=== PATIENT | female | born 1935 | race Caucasian/White ===

== ENCOUNTER 2019-09-21 17:56 | Inpatient (IN) | payer MEDICARE ==
[~2019-09-21] VITALS: Ht 154.9 cm; Wt 124.7 kg
[2019-09-21 18:25] VITALS: BP 144/68; BMI 52.0
--- NOTE | 2019-09-21 19:22 | NUR ---
PT SITTING UP IN BED. CL IN REACH. IN ROOM. BED IN LOW SIDE RAILS X2. LUNGS CLEAR. BOWEL ACTIVE X4. RESP EVEN AND UNLABORED. DENIES NEEDS OR PAIN AT THIS TIME. A/O X4. HAS STRESS INCONT. GROIN EXCORIATED BABY POWDER APPLIED AT THIS TIME NYSTATIN ORDERED. WILL CONTINUE TO MONITOR.
[2019-09-21 22:10] VITALS: BP 185/78
[2019-09-22] MEDS ORDERED: ACETAMINOPHEN500 M1 PO (02:47)
[2019-09-22] MEDS ORDERED: ASPIRIN325 MG PO (02:48)
[2019-09-22] MEDS ORDERED: AMPHOGEL PO (02:48)
[2019-09-22] MEDS ORDERED: NYSTATIN1 PWD TOPICAL (02:49)
[2019-09-22] MEDS ORDERED: ZOFRAN4 MG PO (02:49)
[2019-09-22] MEDS ORDERED: LIPITOR80 MG PO (02:49)
[2019-09-22] MEDS ORDERED: VITAMIN D10000 UNI1 PO (02:50)
[2019-09-22] MEDS ORDERED: PLAVIX75 MG PO (02:50)
[2019-09-22] MEDS ORDERED: OS-CAL500 MG PO (02:50)
[2019-09-22] MEDS ORDERED: COLACE100 MG PO (02:51)
[2019-09-22] MEDS ORDERED: FUROSEMIDE40 MG PO (02:52)
[2019-09-22] MEDS ORDERED: FLUTICASONE PRO16 GM NASAL (02:52)
--- NOTE | 2019-09-22 02:52 | NUR ---
I have reviewed this patient and I concur with the Shift Assessment completed by the Licensed Practical Nurse today this shift.
[2019-09-22] MEDS ORDERED: GLIMEPIRIDE2 MG PO (02:53)
[2019-09-22] MEDS ORDERED: HYDROCODON-ACE1 EAC7 PO (02:54)
[2019-09-22] MEDS ORDERED: METAMUCIL PACKE1 PKT PO (02:55)
[2019-09-22] MEDS ORDERED: CLARITIN 10 MG10 MG PO (02:55)
[2019-09-22] MEDS ORDERED: XALATAN 0.0052.5 ML EACH EYE (02:55)
[2019-09-22] MEDS ORDERED: OMEPRAZOLE20 M1 PO (02:56)
[2019-09-22] MEDS ORDERED: TRADJENTA5 MG PO (02:57)
[2019-09-22] MEDS ORDERED: POTASSIUM99 M1 PO (02:57)
[2019-09-22 07:47] LABS: ANION GAP 11.2 mmol/L (8-16); CALCIUM 8.5 mg/dL (8.5-10.1); CARBON DIOXIDE 27.8 mmol/L (21.0-32.0); CREATININE - SERUM 2.2 mg/dL (0.6-1.3)
[2019-09-22 07:49] LABS: BASOPHILS 0.1 % (0-2); EOSINOPHILS 5.7 % (0-7); HEMOGLOBIN 9.5 g/dL (12-16); IMMATURE GRANULOCYTES 0.6 % (0-5); LYMPHOCYTES 6.5 % (15-50); MCHC 31.7 g/dL (31.0-37.0); MCV 85.2 fL (80.0-100.0); MEAN PLATELET VOLUME 10.2 fL (7.4-10.4); MONOCYTES 10.8 % (2-11); NEUTROPHILS 76.3 % (40-80); PLATELET COUNT 270 10x3/uL (130-400); RBC 3.52 10x6/uL (4.00-5.40); RDW 15.2 % (11.5-14.5); WBC 9.6 10x3/uL (4.8-10.8)
--- NOTE | 2019-09-22 08:00 | NUR ---
PATIENT IS ALERT/ORIENT. CALL LIGHT WITHIN REACH. VOICES NO NEEDS AT THIS TIME. WILL CONTINUE WITH PLAN OF CARE
[2019-09-22 08:25] VITALS: BP 174/59
[2019-09-22 09:50] VITALS: Ht 154.9 cm; Wt 124.7 kg
--- NOTE | 2019-09-22 11:13 | NUR ---
OCCUPATIONAL THERAPIST WORKING WITH PATIENT. HELPING PATIENT WITH A SHOWER
--- NOTE | 2019-09-22 20:00 | NUR ---
AWAKE AND ALERT. RESPIRATIONS UNLABORED. SITTING IN WHEELCHAIR TALKING WITH VISITORS. REQUESTED TO GO TO BATHROOM. ASSISTED TO BATHROOM AND BACK TO BED. MEDICATED FOR PAIN AND C/O COUGH. SEE MAR. CALL LIGHT IN REACH.
[2019-09-22 21:50] VITALS: BP 147/54
--- NOTE | 2019-09-23 00:17 | NUR ---
RESTING IN BED WITH RESPIRAITONS UNLABORED. ASSISTED TO BATHROOM AND BACK TO BED. MEDICATED FOR C/O COUGH.
--- NOTE | 2019-09-23 03:32 | NUR ---
CONTINUES SLEEPING WITH RESPIRATIONS UNLABORED. NO DISTRESS NOTED.
--- NOTE | 2019-09-23 05:20 | NUR ---
QUIET HOURS. NO ACUTE CHANGES IN CONDITION THIS SHIFT. RESTING IN BED WITH NO DISTRESS NOTED. CALL LIGHT IN REACH.
[2019-09-23 07:00] VITALS: BP 151/73
--- NOTE | 2019-09-23 09:54 | NUR ---
PT AM MEDS ADMINISTERED. PT ASSISSTED INTO BR. PT ASSISSTED IN CHANGING CLOTHES. PT BACK IN BEDSIDE CHAIR AND DENIES FURTHUR NEEDS AT THIS TIME. WCTM.
--- NOTE | 2019-09-23 19:14 | NUR ---
GREETED PATIENT AND INTRODUCED MYSELF HER NURSE. PATIENT IS LAYING IN BED RESTING AT THIS TIME. RESPIRATIONS EVEN. NO S/S OF DISTRESS. DENIES ANY NEEDS AT THIS TIME. CALL LIGHT IN REACH.
[2019-09-23 19:45] VITALS: BP 166/60
--- NOTE | 2019-09-24 00:40 | NUR ---
PT AWAKE AND COUGHING. ADMINISTERED 5 ML OF ROBITUSSIN PRN FOR COUGH. WCTM. CALL LIGHT IN REACH.
--- NOTE | 2019-09-24 02:59 | NUR ---
PT SITTING IN WHEELCHAIR WITH EYES CLOSED. RESPIRAITONS EVEN. NO S/S OF DISTRESS. CALL LIGHT IN REACH. WCTM.
--- NOTE | 2019-09-24 03:22 | NUR ---
PT. BACK TO BED FROM WHEELCHAIR. REPOSITIONED FOR COMFORT. CALL LIGHT IN REACH.
--- NOTE | 2019-09-24 08:08 | NUR ---
PT SITTING UP IN WHEELCHAIR EATING BREAKFAST, AVEL NEEDS. WCTM.
[2019-09-24 10:08] VITALS: BP 153/44
--- NOTE | 2019-09-24 19:20 | NUR ---
GREETED PATIENT AND INTRODUCED MYSELF HER NURSE. PATIENT IS CURRENTLY SITTING IN RECLINER WATCHING TV. RESPIRATIONS EVEN. NO S/S OF DISTRESS. DENIES ANY NEEDS AT THIS TIME. CALL LIGHT IN REACH.
[2019-09-24 19:30] VITALS: BP 128/50
--- NOTE | 2019-09-25 01:00 | NUR ---
PT RESTING QUIETLY WITH EYES CLOSED. RESPIRATIONS EVEN. NO S/S OF DISTRESS. CALL LIGHT IN REACH.
[2019-09-25 07:06] LABS: BASOPHILS 0.3 % (0-2); EOSINOPHILS 8.6 % (0-7); HEMATOCRIT 30.9 % (36.0-48.0); HEMOGLOBIN 9.7 g/dL (12-16); IMMATURE GRANULOCYTES 0.7 % (0-5); LYMPHOCYTES 16.3 % (15-50); MCH 26.7 pg (26.0-34.0); MCHC 31.4 g/dL (31.0-37.0); MCV 85.1 fL (80.0-100.0); MONOCYTES 13.2 % (2-11); NEUTROPHILS 60.9 % (40-80); PLATELET COUNT 262 10x3/uL (130-400); RBC 3.63 10x6/uL (4.00-5.40); RDW 15.5 % (11.5-14.5); WBC 5.9 10x3/uL (4.8-10.8)
[2019-09-25 07:25] LABS: CALCIUM 8.5 mg/dL (8.5-10.1); CARBON DIOXIDE 31.9 mmol/L (21.0-32.0); CREATININE - SERUM 1.7 mg/dL (0.6-1.3); POTASSIUM - SERUM 3.9 mmol/L (3.5-5.1)
--- NOTE | 2019-09-25 07:35 | NUR ---
ALERT AND ORIENTED. NO DISTRESS NOTED. RESP EVEN AND UNLABORED. CL IN REACH.
[2019-09-25 08:14] VITALS: BP 154/60
--- NOTE | 2019-09-25 13:13 | NUR ---
Nutrition Follow-up: Diet: Diabetic PO intake: ~50% average x last 4 meals; reports that per appetite is "not good." She is willing to get Glucerna with meal trays. Last BM: 09/25/19. WT: 275# (09/22/19) Meds noted: metamucil, MOM, lasix, glimepiride Labs noted: BUN 33(H), Cr 1.7(H), GFR 30(L), Glu 122(H) Recommend continue current diet. Encouraged PO intake, especially of protein rich foods. Will add Glucerna with meals. RD following.
--- NOTE | 2019-09-25 13:22 | NUR ---
SITTING IN CHAIR IN ROOM NO DISTRESS. CL IN REACH.
--- NOTE | 2019-09-25 15:51 | NUR ---
NO CHANGE IN ASSESSMENT. SITTING IN CHAIR. NO C/O PAIN AT THIS TIME. CL IN REACH.
--- NOTE | 2019-09-25 19:20 | NUR ---
PT SITTING UP IN WHEELCHAIR. VISITORS IN ROOM. DENIES NEEDS OR PAIN AT THIS TIME. CL IN REACH. RESP EVEN AND UNLABORED. A/O X4. LUNGS CLEAR. BOWEL ACTIVE X4. WILL CONTINUE TO MONITOR.
[2019-09-25 20:52] VITALS: BP 158/55
--- NOTE | 2019-09-26 00:19 | NUR ---
I have reviewed this patient and I concur with the Shift Assessment completed by the Licensed Practical Nurse today this shift.
[2019-09-26 07:52] VITALS: BP 140/67
--- NOTE | 2019-09-26 09:26 | NUR ---
PATIENT IS ALERT/ORIENT. CALL LIGHT WITHIN REACH. VOICES NO NEEDS AT THIS TIME. WILL CONTINUE WITH PLAN OF CARE.
--- NOTE | 2019-09-26 10:10 | NUR ---
OCCUPATIONAL THERAPIST IN ROOM. HELPING PATIENT WITH A SHOWER
--- NOTE | 2019-09-26 12:12 | NUR ---
PATIENT ADMITTED TO REHAB FROM AN OUTSIDE FACILITY. SHE HAS A ROLLING WALKER AT HOME. DISCHARGE PLANS ARE FOR HER TO RETURN HOME . WILL CONTINUE TO FOLLOW WITH PATIENT.
--- NOTE | 2019-09-26 14:48 | NUR ---
PATIENT IS A MODERATE ASST OF ONE FROM WHEELCAIR ONTO TOILET. NEEDS HELP GETTING FEET UP IN BED.
--- NOTE | 2019-09-26 19:22 | NUR ---
PT SITTING UP IN RECLINER. VISITORS IN ROOM. DENIES NEEDS OR PAIN AT THIS TIME. BED IN LOW SIDE RAILS X2. A/O X4. CL IN REACH. RESP EVEN AND UNLABORED. LUNGS CLEAR. BOWEL ACTIVE X4. WILL CONTINUE TO MONITOR.
[2019-09-26 21:04] VITALS: BP 160/51
--- NOTE | 2019-09-27 04:02 | NUR ---
I have reviewed this patient and I concur with the Shift Assessment completed by the Licensed Practical Nurse today this shift.
[2019-09-27 06:24] LABS: BASOPHILS 0.2 % (0-2); EOSINOPHILS 9.3 % (0-7); HEMATOCRIT 30.9 % (36.0-48.0); HEMOGLOBIN 9.4 g/dL (12-16); IMMATURE GRANULOCYTES 0.5 % (0-5); MCH 26.6 pg (26.0-34.0); MCHC 30.4 g/dL (31.0-37.0); MCV 87.3 fL (80.0-100.0); MEAN PLATELET VOLUME 10.4 fL (7.4-10.4); MONOCYTES 13.8 % (2-11); NEUTROPHILS 61.2 % (40-80); PLATELET COUNT 260 10x3/uL (130-400); RBC 3.54 10x6/uL (4.00-5.40); RDW 15.8 % (11.5-14.5); WBC 5.7 10x3/uL (4.8-10.8)
[2019-09-27 06:47] LABS: ANION GAP 10.2 mmol/L (8-16); CALCIUM 8.9 mg/dL (8.5-10.1); CREATININE - SERUM 1.8 mg/dL (0.6-1.3); POTASSIUM - SERUM 4.2 mmol/L (3.5-5.1)
[2019-09-27 07:57] VITALS: BP 175/65
--- NOTE | 2019-09-27 09:27 | NUR ---
PATIENT IS ALERT. SOME FORGETFULLNESS NOTED. PATIENT SITTING UP IN WHEELCHAIR. CHAIR ALARM ON. CALL LIGHT WITHIN REACH. VOICES NO NEEDS AT THIS TIME. WILL CONTINUE WITH PLAN OF CARE
--- NOTE | 2019-09-27 10:10 | NUR ---
PATIENT IN REHAB ROOM. WORKING WITH OCCUPATIONAL THERAPIST. DENIES ANY PAIN/DISC AT THIS TIME.
--- NOTE | 2019-09-27 13:42 | NUR ---
Nutrition Follow-up: Discussed in CM meeting. Diet: Diabetic + Glucerna TID PO intake: ~58% average x last 9 meals Last BM: 09/26/19. WT: 275# (09/22/19) Meds noted: metamucil, MOM, lasix, glimepiride, linagliptin Labs noted: Glu 158(H) Recommend continue current diet and oral nutrition supplement. RD following.
--- NOTE | 2019-09-27 14:55 | NUR ---
PATIENT HELPED INTO BATHROOM. MODERATE ASST OF ONE TO GET OUT OF BED. STAND BY ASST WITH WHEELED WALKER
--- NOTE | 2019-09-27 19:25 | NUR ---
PT SITTING UP IN RECLINER. CL IN REACH. DENIES NEEDS OR PAIN AT THIS TIME. RESP EVEN AND UNLABOERD. A/O X4. LUNGS CLEAR. BOWEL ACTIVE X4. WILL CONTINUE TO MONITOR.
[2019-09-27 22:06] VITALS: BP 181/69
--- NOTE | 2019-09-28 00:59 | NUR ---
I have reviewed this patient and I concur with the Shift Assessment completed by the Licensed Practical Nurse today this shift.
--- NOTE | 2019-09-28 07:30 | NUR ---
RECEIVED A/A/OX4 SITTING UP IN CHAIR AT BEDSIDE. DENIES ANY PAIN AND VOICES NO REQUESTS. ASSESSMENT COMPLETED AND WILL CONTINUE POC. CASLL LIGHT IN REACH AND PT CHEL WHEN SHE NEEDS ASST GETTING UP TO BATHROOM.
[2019-09-28 08:59] VITALS: BP 189/68
--- NOTE | 2019-09-28 12:00 | NUR ---
I have reviewed this patient and I concur with the Shift Assessment completed by the Licensed Practical Nurse today this shift.
--- NOTE | 2019-09-28 16:27 | NUR ---
CARE TEAM MEETING: PATIENT AND DAUGHTER ATTENDED MEETING. THEIR QUESTIONS AND CONCERNS WERE ADDRESSED. TENATIVE DISCHARGE DATE IS 09/29/19. WILL CONTINUE TO FOLLOW WITH PATIENT.
--- NOTE | 2019-09-28 19:19 | NUR ---
INTRODUCED SELF TO PT, FAMILY AT BEDSIDE, PT STATES NO NEW NEEDS AT THIS TIME, CALL LIGHT WITHIN REACH. WILL CONTINUE TO MONITOR.
[2019-09-28 20:22] VITALS: BP 186/73
--- NOTE | 2019-09-28 20:52 | NUR ---
NIGHT MEDICATION GIVEN, PT STATES PAIN AT A 5 IN LOWER BACK, PAIN MEDICATION GIVEN, PT TOLERATED WELL, ASSIST PT BACK TO BED FROM CHAIR WITH MINIMAL ASSISTANCE, BED IN LOW POSITION, RAILS UP X'S 2, CALL LIGHT WITHIN REACH, WILL CONTINUE TO MONITOR.
--- NOTE | 2019-09-29 00:07 | NUR ---
PT RESTING QUIETLY IN BED, RESPIRATIONS EVEN, ROOM CLEARED OF CLUTTER, BED IN LOW POSITION, SIDE RAILS UP X'S 2, CALL LIGHT WITHIN REACH, WILL CONTINUE TO MONITOR.
--- NOTE | 2019-09-29 02:34 | NUR ---
PT RESTING QUIETLY, RESPIRATIONS EVEN, CALL LIGHT WITHIN REACH, WILL CONTINUE TO MONITOR.
--- NOTE | 2019-09-29 02:35 | NUR ---
I have reviewed this patient and I concur with the Shift Assessment completed by the Licensed Practical Nurse today this shift.
--- NOTE | 2019-09-29 03:41 | NUR ---
PT STATES PAIN AT A 7 IN LEFT SHOULDER, REPOSITION PT AND PAIN MED GIVEN, CALL LIGHT WITHIN REACH, WILL CONTINUE TO MONITOR.
--- NOTE | 2019-09-29 05:11 | NUR ---
ASSISTED PT TO BATHROOM AND BACK TO BED VIA WHEELCHAIR WITH MIN TO MOD ASSISTANCE, MORNING MEDICATION GIVEN, PT TOLERATED WELL, CALL LIGHT WITHIN REACH. WILL CONTINUE TO MONITOR.
[2019-09-29 06:44] LABS: BASOPHILS 0.1 % (0-2); EOSINOPHILS 2.6 % (0-7); HEMATOCRIT 33.4 % (36.0-48.0); HEMOGLOBIN 10.3 g/dL (12-16); IMMATURE GRANULOCYTES 0.4 % (0-5); LYMPHOCYTES 6.1 % (15-50); MCHC 30.8 g/dL (31.0-37.0); MCV 87.4 fL (80.0-100.0); MEAN PLATELET VOLUME 10.4 fL (7.4-10.4); MONOCYTES 8.9 % (2-11); NEUTROPHILS 81.9 % (40-80); PLATELET COUNT 260 10x3/uL (130-400); RBC 3.82 10x6/uL (4.00-5.40)
[2019-09-29 06:50] LABS: ANION GAP 12.8 mmol/L (8-16); CALCIUM 9.4 mg/dL (8.5-10.1); CARBON DIOXIDE 27.4 mmol/L (21.0-32.0); CREATININE - SERUM 1.5 mg/dL (0.6-1.3); POTASSIUM - SERUM 4.2 mmol/L (3.5-5.1)
--- NOTE | 2019-09-29 07:30 | NUR ---
RECEIVED A/A/OX4. SITTING UP IN BEDSIDE CHAIR. STATES SHE IS STILL HAVING SOME PAIN IN HER LEFT SHOULDER BUT NOT BAD IT WAS EARLIER WHEN SHE TOOK PAIN MED. INFORMED HER NOT YET TIME FOR PAIN MED AGAIN AND STATES SHE UNDERSTANDS. NO OTHER PROBLEMS OR REQUESTS. ASSESSMENT COMPLETED AND WILL CONTINUE POC. PT STATES SHE IS HOPING TO STILL BE DISCHARGED TODAY.
[2019-09-29] MEDS ORDERED: HYDROCODON-ACE1 EAC7 PO (08:31)
--- NOTE | 2019-09-29 11:01 | NUR ---
PATIENT DISCHARGING HOME TODAY WITH FAMILY. [facility] WILL PROVIDE THERAPY AT HOME.NO NEW DME NEEDED AT THIS TIME. DR. LOYA 10/11/19 @ 2:15, DR. LEPE 11/22/2019 @ 1:10. PATIENT CHOICE FORM FOR HOME HEALTH SIGNED, NO COMPARE DATA REVIEWED PATIENT IS A CLIENT OF [facility]. [facility] FORM SIGNED AND EXPLAINED, FILED INCHART AND ONE GIVEN TO PATIENT. DISCHARGE INSTRUCTIONS FAXED TO PCP, HOME HEALTH AND REVIEWED WITH PATIENT.
[2019-09-29 11:25] VITALS: BP 186/52
--- NOTE | 2019-09-29 12:20 | NUR ---
DISCHARGE INSTRUCTIONS REVIEWED WITH PT AND VERBALIZES UNDERSTANDING WITH NO QUESTION. LEFT FLOOR VIA W/C WITH ALL PERSONAL BELONGINGS AND LEFT FACILITY VIA PRIVATE VEHICLE WITH HER . PRESCRIPTIONS CALLED TO [facility] IN [place], SPOKE WITH JOSEFINA.
--- NOTE | 2019-10-02 16:47 | RHP ---
PATIENT: TISH NICK MEDICAL RECORD: [id number] ACCOUNT: [id number] LOCATION:[facility] : 37 ADMISSION DATE: 09/21/19 REHABILITATION HISTORY AND PHYSICAL EXAMINATION POST ADMISSION PHYSICIAN EXAMINATION POST ADMISSION PHYSICAL EXAMINATION AND HISTORY AND PHYSICAL DATE OF ADMISSION: 09/21/2019 ADMITTING DIAGNOSIS: Cerebrovascular accident. HISTORY OF PRESENT ILLNESS: The patient is an 83-year-old female patient, who lives at home with her in [place]. She has not been working for several years, but did use to work at [employer]. The patient apparently utilizes a rolling walker for household mobility, scooter for community activity, but does not drive. On September 12, the patient went to her PCP with bilateral lower extremity swelling. When she was getting out of her car, she heard a pop in her right hip and has pain upon weightbearing. She had a negative pelvic x-ray in the office. She was prescribed tramadol and sent home. She continued to have right hip. PCP recommend a CT of her hip. She was sent over to [facility], where she had this done. Apparently, the scan was negative as well. She was admitted for pain control and further workup. She has been treated for E. coli UTI during her stay. She has had a history of low back pain, chronic kidney disease, morbid obesity, UTI, hyperlipidemia, and TIAs. The patient preparing to discharge when on she began having altered mental status with left-sided facial drooping and slurred speech. 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 She was assessed through [facility] prior to transfer to [facility] on September 18. She did not receive IV TPA. She was admitted to the neuro floor with diagnosis of CVA with occlusion of middle cerebral artery, bilateral internal carotid stenosis, dyspepsia, stage III chronic kidney disease, morbid obesity, polyneuropathy, encephalopathy due to metabolic etiology. The patient was seen by neurology and also by interventional radiology. No surgical intervention was done. She was started on Plavix, statin, and aspirin. The patient is noted to have aggressive medical management, MD, required acute rehab consultation. She has been participating in PT, OT, and speech therapy. She is a diabetic and she is on thickened liquids, which she has tolerated well. 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 She does have some incontinence and does at times pass stool with urine. She has ambulated 3 feet at bedside with rolling walker with moderate assist. She has been requiring supervision for total assist with PT, OT, and ADLs. Barriers to her return home at this time include difficulty with mobility, need to have a decreased burden of care on her , need for increased independence and safety, need for medical management of her comorbidities. The patient will need MD, RN, and oversight during her stay for intensive PT, OT, and speech therapy. She would like to return home with her and be as independent as possible. Comorbidities include [id number] renal failure, encephalopathy, carotid stenosis, chronic back pain, chronic kidney disease, confusion, CVA, degenerative disc disease, gastroesophageal reflux disease, hyperlipidemia, hyponatremia, left-sided weakness, metabolic encephalopathy, pain, peripheral neuropathy, and UTI. PAST MEDICAL HISTORY: Significant for arthritis, diabetes, diverticulitis, morbid obesity, hyperlipidemia, hypertension, stroke, TIA. HISTORY AND PHYSICAL [id number] TISH NICK PAST SURGICAL HISTORY: Includes cholecystectomy, hysterectomy, and joint replacement. ALLERGIES: CIPRO AND LEVAQUIN. CURRENT MEDICATIONS: Include Protonix 40 mg daily, Metamucil daily, Estefanía 60 mg daily, furosemide 40 mg daily, Plavix 75 mg daily, vitamin D 400 units daily, Caltrate 500 mg daily, atorvastatin 80 mg daily, aspirin 325 daily, Amaryl 2 mg daily, Tradjenta 5 mg daily. She is on potassium 198 mg b.i.d., nystatin powder topically b.i.d., Xalatan eye drops daily, Colace 100 mg daily, Zofran 4 mg daily, Gaviscon p.r.n., Flasher 5/325 one tab every 6 hours p.r.n., Flonase nasal spray as needed, and also Tylenol 500 mg every 6 hours p.r.n. HABITS: No current alcohol or tobacco use. FAMILY HISTORY: Noncontributory. SOCIAL HISTORY: The patient hopes to return back home and get back to her prior level of functioning. REVIEW OF SYSTEMS: GENERAL: Does complain of some weakness mainly in her left side. HEENT: Denies cold, cough, or congestion. CARDIOVASCULAR: Denies any chest pain. PHYSICAL EXAMINATION: VITAL SIGNS: Stable, afebrile. GENERAL: A morbidly obese female, in no distress upon exam. HEENT: Normocephalic and atraumatic. Mucosa moist. NECK: Supple. No lymphadenopathy. LUNGS: Clear in the upper ritter with decreased breath sounds in the bases secondary to body habitus. CARDIOVASCULAR: Regular rate and rhythm. She does have a holosystolic murmur. ABDOMEN: Soft, benign, and nondistended. Positive bowel sounds times 4. EXTREMITIES: No clubbing, cyanosis or edema. NEUROLOGIC: She does have 2/5 muscular strength in her proximal muscles of her leg. She does have some noted weakness on the left side as compared to the right. LABORATORY DATA: White count is 9.6, H&H of 9.5 and 30.0, platelet count is 270. Sodium 133, potassium 4.0, BUN and creatinine of 44 and 2.2, and blood sugar is noted to be 139. ASSESSMENT: This is an 83-year-old female patient admitted to the rehab with a working diagnosis of a right-sided cerebrovascular accident involving left side of her body. The patient has potential to make improvement. We will institute the following multidisciplinary therapies including, but not limited to, physical, occupational, respiratory, speech, nutritional services, prosthetics, and orthotics. Given her complex medical condition and risks for more complications, rehabilitation services cannot be provided at a lower level of care such as a skilled nurse facility. PLAN: 1. Admit to [facility] for an inpatient therapy to include the HISTORY AND PHYSICAL [id number] TISH NICK following disciplines; A. Physical therapy to improve gait, all transfer skills, and bed mobility to modified independent level. B. Occupational therapy to modified independent level. C. Case management to assist with discharge planning and placement options. D. Nutrition to assist with nutritional needs. E. Rehabilitation nursing to assist in monitoring the patient's underlying medical conditions and to assist with any type of bowel or bladder management. 2. The patient's current medications and medical care will be continued. 3. The patient will be placed on standard fall precautions. 4. The patient's estimated length of stay is approximately 7-10 days. 5. We will discuss this patient during care team staff meeting this week. We will continue on medications that are appropriate. We will continue on her statin, her aspirin, and her Plavix for stroke prevention, and I will see again in the a.m. TRANSINT:[id number] Voice Confirmation ID: [id number] DOCUMENT ID: [id number] RITCHIE notes whether there has been none or any medical/functional change since admission: - No change since preadmission screen. RITCHIE attests patient continues to be appropriate for IRF: - Continues to be appropriate. NABIL CALDWELL MD at 1647 CC: [id number] DICTATION DATE: 09/22/19 0854 PICTURE ENGRAVER: 09/22/19 1049 DIS IN 09/29/19 [id number] [place] [address]
== END 2019-09-29 12:20 | disposition home health service (06) | DRG 56 ==
LOC: D.REHAB 17:56
PROVIDERS: ADMIT Emergency Medicine; ATTEND Emergency Medicine
DX: I69.354 Hemiplegia and hemiparesis following cerebral infarction affecting left non-dominant side (principal); G93.41 Metabolic encephalopathy; N17.9 Acute kidney failure, unspecified; N39.0 Urinary tract infection, site not specified; E87.1 Hypo-osmolality and hyponatremia; I12.9 Hypertensive chronic kidney disease with stage 1 through stage 4 chronic kidney disease, or unspecified chronic kidney disease; E11.22 Type 2 diabetes mellitus with diabetic chronic kidney disease; N18.9 Chronic kidney disease, unspecified; I65.29 Occlusion and stenosis of unspecified carotid artery; K21.9 Gastro-esophageal reflux disease without esophagitis; E66.01 Morbid (severe) obesity due to excess calories; R41.0 Disorientation, unspecified; R53.81 Other malaise; E11.40 Type 2 diabetes mellitus with diabetic neuropathy, unspecified; E87.8 Other disorders of electrolyte and fluid balance, not elsewhere classified; E78.5 Hyperlipidemia, unspecified; M19.90 Unspecified osteoarthritis, unspecified site; R32 Unspecified urinary incontinence; R53.1 Weakness

== ENCOUNTER 2020-11-23 20:43 | Inpatient (IN) | payer MEDICARE, OTHER ==
[~2020-11-23] VITALS: Ht 154.9 cm; Wt 99.8 kg
[~2020-11-23 20:43] MED LIST: ACETAMINOPHEN500 M1 PO; AMPHOGEL PO; ASPIRIN325 MG PO; CLARITIN 10 MG10 MG PO; COLACE100 MG PO; FLUTICASONE PRO16 GM NASAL; FUROSEMIDE40 MG PO; GLIMEPIRIDE2 MG PO; HYDROCODON-ACE1 EAC7 PO; LIPITOR80 MG PO; METAMUCIL PACKE1 PKT PO; NYSTATIN1 PWD TOPICAL; OMEPRAZOLE20 M1 PO; OS-CAL500 MG PO; PLAVIX75 MG PO; POTASSIUM99 M1 PO; TRADJENTA5 MG PO; VITAMIN D10000 UNI1 PO; XALATAN 0.0052.5 ML EACH EYE; ZOFRAN4 MG PO
[2020-11-24] VITALS (7 sets, daily range): BP systolic 103–162; BP diastolic 44–76; BMI 41.6
--- NOTE | 2020-11-24 01:00 | NUR ---
PT ADMITTED TO UNIT FROM ER. ALERT/ORIENTED. ACCOMPANIED BY HER . MAX ASSIST/TOTAL FOR TRANSFER FROM STRETCHER TO BED. ADMISSION HISTORY AND ASSESSMENT COMPLETED. HOME MEDS REVIEWED/UPDATED. IV ABT FROM ER COMPLETED. HAS PIV NOW SALINE LOCKED TO RIGHT WRIST. BILATERAL LOWER LEGS ARE EDEMATOUS AND WEEPING WITH LARGE SCABBED AREAS. SPOUSE AND PATIENT STATE THIS BEGAN "A FEW DAYS AGO". TELEMETRY INITIATED, PT SHOWS SR WITH PAC'S AND ST ELEVATION AND 1ST DEGREE HEART BLOCK. PT DENIES PAIN UNLESS SOMEONE TOUCHES HER LOWER LEGS.
[2020-11-24 02:02] LABS: BASOPHILS 0.2 % (0-2); EOSINOPHILS 1.8 % (0-7); HEMOGLOBIN 10.1 g/dL (12-16); IMMATURE GRANULOCYTES 0.3 % (0-5); LYMPHOCYTE ABS# 0.61 10x3/uL (1.18-3.74); LYMPHOCYTES 6.5 % (15-50); MCH 24.6 pg (26.0-34.0); MCHC 30.6 g/dL (31.0-37.0); MCV 80.5 fL (80.0-100.0); MEAN PLATELET VOLUME 12.8 fL (7.4-10.4); MONOCYTES 11.4 % (2-11); NEUTROPHIL ABS# 7.43 10x3/uL (1.56-6.13); NEUTROPHILS 79.8 % (40-80); PLATELET COUNT 154 10x3/uL (130-400); WBC 9.3 10x3/uL (4.8-10.8)
[2020-11-24 02:11] LABS: APTT 34.1 SECONDS (22.8-39.4); INR 1.41 (0.85-1.17)
[2020-11-24 02:12] LABS: D-DIMER-QUANTITATIVE 0.86 ug/mLFEU (0.20-0.54)
[2020-11-24 02:25] LABS: ALBUMIN 3.2 g/dL (3.4-5.0); ALKALINE PHOSPHATASE 134 U/L (30-120); ALT (SGPT) 11 U/L (10-68); CALC OSMOLALITY 311 mosm/kg (275-300); CALCIUM 9.3 mg/dL (8.5-10.1); CARBON DIOXIDE 26.2 mmol/L (21.0-32.0); CHLORIDE - SERUM 109 mmol/L (98-107); CKMB 1.5 U/L (0.0-3.6); CREATINE KINASE 30 UL (21-215); GLUCOSE 177 mg/dL (74-106); MAGNESIUM - SERUM 2.8 mg/dL (1.8-2.4); POTASSIUM - SERUM 4.6 mmol/L (3.5-5.1); PRO BNP 4391 pg/mL (0-450); PROTEIN - SERUM 6.9 g/dL (6.4-8.2); SODIUM 143 mmol/L (136-145); UREA NITROGEN 77 mg/dL (7-18); eGFR NON AFRICAN AMERICAN 25 mL/min (90-120)
[2020-11-24 02:27] LABS: TROPONIN-I < 0.017 ng/mL (0.000-0.060)
[2020-11-24] MEDS ORDERED: TORSEMIDE20 MG PO (04:09)
[2020-11-24] MEDS ORDERED: TRADJENTA5 MG PO (04:10)
--- NOTE | 2020-11-24 06:28 | NUR ---
PT HAS RESTED WELL. NO DISTRESS. CLEAN/DRY. WEARING DEPENDS. CALL LIGHT IN REACH. SR UP X 2.
--- NOTE | 2020-11-24 07:20 | NUR ---
RECIEVE REPORT. RESTING IN BED WITH EYES CLOSED. NO SIGNS OF DISTRESS. CONTINUE PLAN OF CARE AND SAFETY PRECAUTIONS.
[2020-11-24 10:52] LABS: COMPLEMENT C4 21.4 mg/dL (17.4-52.2)
[2020-11-24 11:20] LABS: CHOL - HDL RATIO 2.5 ratio (2.3-4.1); LDL-HDL RATIO 1.1 ratio (1.5-3.5); MAGNESIUM - SERUM 2.9 mg/dL (1.8-2.4); THYROID STIMULATING HORMONE 1.8 uIU/mL (0.36-3.74)
--- NOTE | 2020-11-24 15:50 | NUR ---
ALERT AND ORIENTED X4. SITTING UP IN BED. SPOUSE AT BEDSIDE. DENIES ANY NEEDS. NO SIGNS OF DISTRESS. NO CHANGE. BED BATH AND LINEN CHANGE COMPLETE. CONTINUE PLAN OF CARE AND SAFETY PRECAUTIONS.
[2020-11-25] VITALS: BP 136/81
[2020-11-25 04:00] VITALS: BP 109/52
[2020-11-25 05:38] LABS: BASOPHILS 0.1 % (0-2); EOSINOPHILS 1.2 % (0-7); HEMATOCRIT 33.1 % (36.0-48.0); HEMOGLOBIN 9.9 g/dL (12-16); IMMATURE GRANULOCYTES 0.2 % (0-5); LYMPHOCYTE ABS# 0.66 10x3/uL (1.18-3.74); LYMPHOCYTES 5.3 % (15-50); MCH 24.3 pg (26.0-34.0); MCHC 29.9 g/dL (31.0-37.0); MCV 81.3 fL (80.0-100.0); MONOCYTES 11.6 % (2-11); NEUTROPHIL ABS# 10.17 10x3/uL (1.56-6.13); NEUTROPHILS 81.6 % (40-80); PLATELET COUNT 139 10x3/uL (130-400); RBC 4.07 10x6/uL (4.00-5.40); RDW 18.2 % (11.5-14.5); WBC 12.5 10x3/uL (4.8-10.8)
[2020-11-25 05:51] LABS: ALBUMIN 3.2 g/dL (3.4-5.0); ANION GAP 15.6 mmol/L (8-16); BILIRUBIN - TOTAL 0.45 mg/dL (0.2-1.3); CALCIUM 9.5 mg/dL (8.5-10.1); CARBON DIOXIDE 23.3 mmol/L (21.0-32.0); CREATININE - SERUM 1.7 mg/dL (0.6-1.3); MAGNESIUM - SERUM 2.8 mg/dL (1.8-2.4); POTASSIUM - SERUM 4.9 mmol/L (3.5-5.1); PROTEIN - SERUM 6.4 g/dL (6.4-8.2); VANCOMYCIN - RANDOM 7.2 ug/mL (10.0-20.0)
--- NOTE | 2020-11-25 07:20 | NUR ---
RECIEVE REPORT. RESTING IN BED WITH EYES CLOSED. NO SIGNS OF DISTRESS. CONTINUE PLAN OF CARE AND SAFETY PRECAUTIONS.
[2020-11-25 08:00] VITALS: BP 158/48
[2020-11-25 11:00] VITALS: BP 140/58
[2020-11-25 13:09] VITALS: Ht 154.9 cm; Wt 99.8 kg
--- NOTE | 2020-11-25 16:27 | NUR ---
Rehab prescreen order received. Awaiting OT assessment. Thank you for this referral. Yvette Garcia LPN, Clinical Liaison
[2020-11-26 01:20] VITALS: BP 121/44
[2020-11-26 05:20] VITALS: BP 120/43
[2020-11-26 05:56] LABS: BILIRUBIN NEGATIVE (NEGATIVE); KETONE NEGATIVE (NEGATIVE); NITRITE NEGATIVE (NEGATIVE); UROBILINOGEN NORMAL mg/dL (< 2)
[2020-11-26 05:57] LABS: BACTERIA FEW HPF (NONE SEEN); SQUAMOUS EPITHELIAL 0-5 HPF (0-4); WHITE CELLS - URINE 0-5 HPF (0-4)
[2020-11-26 06:18] LABS: BASOPHILS 0.1 % (0-2); EOSINOPHILS 2.3 % (0-7); HEMATOCRIT 31.6 % (36.0-48.0); HEMOGLOBIN 9.6 g/dL (12-16); IMMATURE GRANULOCYTES 0.6 % (0-5); LYMPHOCYTE ABS# 0.69 10x3/uL (1.18-3.74); LYMPHOCYTES 6.6 % (15-50); MCH 24.6 pg (26.0-34.0); MCHC 30.4 g/dL (31.0-37.0); MONOCYTES 13.8 % (2-11); NEUTROPHIL ABS# 7.99 10x3/uL (1.56-6.13); NEUTROPHILS 76.6 % (40-80); PLATELET COUNT 134 10x3/uL (130-400); RDW 18.2 % (11.5-14.5); WBC 10.4 10x3/uL (4.8-10.8)
[2020-11-26 06:27] LABS: ALBUMIN 2.9 g/dL (3.4-5.0); ANION GAP 13.9 mmol/L (8-16); BILIRUBIN - TOTAL 0.52 mg/dL (0.2-1.3); CALCIUM 9.4 mg/dL (8.5-10.1); CARBON DIOXIDE 24.3 mmol/L (21.0-32.0); CREATININE - SERUM 1.8 mg/dL (0.6-1.3); MAGNESIUM - SERUM 2.5 mg/dL (1.8-2.4); POTASSIUM - SERUM 4.2 mmol/L (3.5-5.1); PROTEIN - SERUM 6.7 g/dL (6.4-8.2); VANCOMYCIN - RANDOM 14.7 ug/mL (10.0-20.0)
[2020-11-26 08:00] VITALS: BP 132/52
[2020-11-26 11:00] VITALS: BP 126/71
[2020-11-26] MEDS ORDERED: IPRAT-ALBUT 0.5-3 ML UPD (14:23)
[2020-11-26] MEDS ORDERED: VANCOMYCIN 1 GM/1 G1 IV (14:23)
[2020-11-26] MEDS ORDERED: IPRAT-ALBUT 0.5-3 ML INH (14:23)
[2020-11-26] MEDS ORDERED: Merrem 1 GM/NS 100 M IV (14:23)
[2020-11-26] MEDS ORDERED: MUCINEX600 MG PO (14:24)
[2020-11-26] MEDS ORDERED: LASIX INJ40 MG/4 ML IV ×2 (14:24)
[2020-11-26] MEDS ORDERED: HUMALOG 30100 UNITS/ SC (14:25)
[2020-11-26] MEDS ORDERED: MUPIROCIN22 GM TOPICAL ×2 (14:25→20:15)
[2020-11-26] MEDS ORDERED: FLORAJEN DIGES1 EACH PO (14:25)
--- NOTE | 2020-11-26 14:51 | NUR ---
OT NOTE: PT REQUIRED MAX-TOTAL A FOR SUPINE TO SIT. PT REQUIRED MAX A TO EOB. PT COMPLETED STATIC SITTING WITH MIN A. PT REQUIRED TOTAL A FOR LB HYGIENE TASKS. PT COMPLETED BED MOBILITY TASKS WITH MAX-TOTAL A. [id number] THANK YOU,MATEO FERREIRA
--- NOTE | 2020-11-26 16:05 | NUR ---
PAGED DR RUGGIERO FOR CLEARNCE TO BE D/C TO IP REHAB.
[2020-11-26 16:31] VITALS: BP 96/60
--- NOTE | 2020-11-26 17:52 | NUR ---
REPORT CALLED TO ELLIE AT THIS TIME IN INPATIENT REHAB
--- NOTE | 2020-11-26 18:05 | NUR ---
PT WHEELED TO INPATIENT REHAB AT THIS TIME, IV STILL IN PLACE D/T IV ANTIBIOTICS. ALL BELONGINGS WITH PT TIME OF TRANSFER.
--- NOTE | 2020-11-26 18:19 | NUR ---
CLARIFIED LASIX IVP ORDER WITH DUY LANDA AT THIS TIME. NOTIFIED ELLIE MACIAS IN REHAB.
== END 2020-11-26 18:20 | DRG 637 ==
LOC: D.ER 20:43 → D.M2 21:27
PROVIDERS: Internal Medicine Nephrology; ADMIT Emergency Medicine; ATTEND Emergency Medicine
DX: E11.628 Type 2 diabetes mellitus with other skin complications (principal); J18.9 Pneumonia, unspecified organism; I50.31 Acute diastolic (congestive) heart failure; L03.115 Cellulitis of right lower limb; Z68.41 Body mass index [BMI] 40.0-44.9, adult; N17.9 Acute kidney failure, unspecified; E66.01 Morbid (severe) obesity due to excess calories; J20.9 Acute bronchitis, unspecified; M54.9 Dorsalgia, unspecified; G89.29 Other chronic pain; E11.40 Type 2 diabetes mellitus with diabetic neuropathy, unspecified; Z86.73 Personal history of transient ischemic attack (TIA), and cerebral infarction without residual deficits

== ENCOUNTER 2020-11-26 18:14 | Inpatient (IN) | payer MEDICARE, OTHER ==
[~2020-11-26] VITALS: Ht 154.9 cm; Wt 99.5 kg
[~2020-11-26 18:14] MED LIST changes: +FLORAJEN DIGES1 EACH PO; +HUMALOG 30100 UNITS/ SC; +IPRAT-ALBUT 0.5-3 ML INH; +IPRAT-ALBUT 0.5-3 ML UPD; +LASIX INJ40 MG/4 ML IV; +MUCINEX600 MG PO; +MUPIROCIN22 GM TOPICAL; +Merrem 1 GM/NS 100 M IV; +TORSEMIDE20 MG PO; +VANCOMYCIN 1 GM/1 G1 IV
[2020-11-26 19:50] VITALS: BP 126/55; Ht 154.9 cm; Wt 99.5 kg
[2020-11-26 20:02] VITALS: BP 126/55
--- NOTE | 2020-11-26 20:14 | NUR ---
ADMIT TO PHYSICAL REHAB FOR SERVICES OF DR CALDWELL. AWAKE AND ALERT. O2/2L ON PER NASAL CANNULA. RIGHT FOREARM SALINE LOCK INTACT. NO ACUTE DISTRESS NOTED.
[2020-11-26] MEDS ORDERED: MUPIROCIN22 GM TOPICAL (20:15)
--- NOTE | 2020-11-27 02:14 | NUR ---
RESTING IN BED WITH NO DISTRESS NOTED. RESPIRATIONS SLIGHTLY LABORED WITH CONTINUED WHEEZING. O2/2L ON PER NASAL CANNULA. CALL LIGHT IN REACH.
--- NOTE | 2020-11-27 05:43 | NUR ---
RESTING IN BED. O2/2L PER NASAL CANUULA. HAS COUGHED FREQUENTLY TONIGHT AND CONSTANTLY CLEARED HER THROAT. NO ACUTE DISTRESS NOTED. CALL LIGHT IN REACH.
[2020-11-27 06:54] LABS: ANION GAP 14.6 mmol/L (8-16); CALCIUM 9.4 mg/dL (8.5-10.1); CARBON DIOXIDE 21.7 mmol/L (21.0-32.0); CREATININE - SERUM 1.6 mg/dL (0.6-1.3); POTASSIUM - SERUM 4.3 mmol/L (3.5-5.1)
[2020-11-27 08:05] VITALS: BP 159/50
[2020-11-27 08:13] LABS: BASOPHILS 0.1 % (0-2); EOSINOPHILS 3.9 % (0-7); HEMATOCRIT 33.3 % (36.0-48.0); HEMOGLOBIN 10.2 g/dL (12-16); IMMATURE GRANULOCYTES 0.4 % (0-5); LYMPHOCYTE ABS# 1.34 10x3/uL (1.18-3.74); MCH 24.5 pg (26.0-34.0); MCHC 30.6 g/dL (31.0-37.0); MCV 79.9 fL (80.0-100.0); MEAN PLATELET VOLUME 12.4 fL (7.4-10.4); MONOCYTES 7.1 % (2-11); NEUTROPHIL ABS# 9.41 10x3/uL (1.56-6.13); NEUTROPHILS 77.5 % (40-80); PLATELET COUNT 140 10x3/uL (130-400); RBC 4.17 10x6/uL (4.00-5.40); RDW 18.1 % (11.5-14.5); WBC 12.1 10x3/uL (4.8-10.8)
--- NOTE | 2020-11-27 09:59 | NUR ---
PATIENT STARTED VOMITTING INTO EMISIS BAG. VOMIT NOTED TO BE CLEAR TO LIGHT YELLOW IN COLOR. PATIENTS ARRIVED TO THE FLOOR AND WAS CONCERNED FOR THE PATIENT. VOMIT NOTED TO BE DARKER IN COLOR NOW. PATIENT COUGHED UP PHLEM WHICH WAS TENGED WITH BRIGHT RED BLOOD. NURSE MANUAL CONTROL AUGER PRESS OPERATOR NOTIFIED AND DR CALDWELL BROUGHT UP TO SPEED. AWAITING NEW ORDERS
[2020-11-27 11:21] LABS: HEMATOCRIT 33.8 % (36.0-48.0); HEMOGLOBIN 10.3 g/dL (12-16)
--- NOTE | 2020-11-27 12:31 | RHP ---
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 HISTORY OF PRESENT ILLNESS: The patient is an 85-year-old female patient who lives at home with her spouse. She is moderately independent with a rolling walker. She does have some stress incontinence and wears adult pull-ups secondary to this. She was noted to have a diaper rash for which was prescribed nystatin powder and she used this. She does have some dementia diagnosis and is dependent on others for care at times. She was noted to have an ultrasound of her left extremity because it was edematous and erythematous and had some weeping that started approximately a week previous to being presented to the hospital. There is a noted wound to her right knee. She complains of dyspnea, dyspnea on exertion and productive cough with yellow phlegm. Her creatinine was 2. Her O2 sats were somewhat low upon presentation. She has been receiving IV Merrem secondary to her electrolytes, this has been watched closely. She is on appropriate medications and getting updrafts and pain medicines on a scheduled basis. The patient has daily labs done. We are monitoring her daily weights with intervention as needed with Lasix. She has been requiring updrafts for her breathing. She is max assist with most ADLs and having trouble ambulating secondary to the pain in her left leg. The patient needs to be able to ambulate to return home. She has only been able to go 10 feet. Her labs also seem to affect her cognition at times. We are monitoring pain control. She got decreased activity tolerance, decreased strength, balance deficit, decreased range of motion, gait disturbance, impaired mobility. She is a high fall risk and self-care deficits. These are all barriers to her discharge home at this time. She will require all therapies in order to return home. COMORBIDITIES: Include acute kidney injury, anemia, bronchitis, cellulitis, chronic back pain, cognitive deficits, constipation, decrease in mobility, decrease in physical functioning, dementia, difficulty walking, edema, fatigue, incontinence, obesity, neuropathy, peripheral arterial disease, pneumonia and diabetes. PAST MEDICAL HISTORY: Significant for CVA in the past, glaucoma, neuropathy, diabetes, peripheral vascular disease, chronic back pain, weakness, neuropathy, constipation, recurrent intertrigo, dementia. PAST SURGICAL HISTORY: Includes hysterectomy, cholecystectomy and joint replacement. ALLERGIES: CIPRO, FLOXIN, ANY FLUOROQUINOLONE. CURRENT MEDICATIONS: Include Floranex one cap daily, vancomycin a gram every 24 hours, Bactroban to apply topically, Metamucil 1 packet daily, potassium gluconate 198 mg daily, Estefanía 60 mg daily, Tradjenta 5 mg daily, Plavix 75 mg daily, calcium carbonate 500 mg daily, aspirin 325 daily, Amaryl 2 mg daily, DuoNeb updrafts, Protonix 40 mg daily, furosemide 40 mg b.i.d., Xalatan eyedrops at bedtime, low resistance sliding scale of insulin, Mucinex 1200 mg b.i.d., atorvastatin 80 mg at bedtime, glucose replacement protocol, Merrem 1 gram every HISTORY AND PHYSICAL [id number] NIX,TISH 12 hours, Zofran 4 mg every 6 hours, Seagraves 5/325 one tab every 6 hours p.r.n., Amphojel as needed for constipation and heartburn, and Tylenol p.r.n. HABITS: No alcohol or tobacco use. FAMILY HISTORY: Noncontributory. SOCIAL HISTORY: The patient hopes to return back home with her spouse and get back to her prior level of functioning. REVIEW OF SYSTEMS: GENERAL: Does complain of weakness and fatigue. HEENT: She denies cold, cough or congestion. CARDIOVASCULAR: Denies any chest pain. PHYSICAL EXAMINATION: VITAL SIGNS: Stable. She is afebrile. GENERAL: A morbidly obese female in no acute distress upon exam. HEENT: Normocephalic and atraumatic. Mucosa moist. NECK: Supple with no lymphadenopathy. LUNGS: Clear in upper ritter with no wheezing, rhonchi, or rales. HEART: Regular rate and rhythm. No murmurs, rubs or gallops. ABDOMEN: Soft, obese, nontender and nondistended. EXTREMITIES: She does have noted wounds to her lower extremities. NEUROLOGIC: She has got diffuse weakness. LABORATORY DATA: Her sodium is 136, her potassium is 4.3. Her BUN and creatinine of 58 and 1.6 and blood sugar is noted to be 111. Her random vancomycin was 20.2. Her white count is pending. ASSESSMENT: This is an 85-year-old female patient admitted to rehab with a working diagnosis of severe debility secondary to recent illness. The patient has potential to make improvement. We instituted the following multidisciplinary therapies including, not limited to physical, occupational, respiratory, speech, nutritional services, prosthetics and orthotics. Given her complex medical condition and risks for more complications, rehabilitation services cannot be provided at a low level of care such as penitentiary facility. PLAN: 1. Admit to [facility] for inpatient therapy to include the following disciplines; A. Physical therapy to improve gait, all transfer skills and bed mobility to a modified independent level. B. Occupational therapy to improve activities of daily living. C. Case management to help with discharge planning and placement options. D. Nutrition to assist with nutritional needs. E. Rehabilitation nursing to assist in monitoring the patient's underlying medical condition and to assist with any type of bowel or bladder management. 2. The patient's current medications and Medicare will be continued. 3. Placed on standard fall precautions. 4. The patient's estimated length of stay is approximately 7-10 days. 5. We will discuss this patient during care team staff meeting this week. TRANSINT:[id number] Voice Confirmation ID: [id number] DOCUMENT ID: [id number] HISTORY AND PHYSICAL [id number] TISH NICK notes whether there has been none or any medical/functional change since admission: - RITCHIE attests patient continues to be appropriate for IRF: - NABIL CALDWELL MD at 1231 CC: [id number] DICTATION DATE: 11/27/20812 PARKS AND RECREATION MANAGER: 11/27/20 0855 ADM IN [facility] [id number] [place] [address]
--- NOTE | 2020-11-27 14:09 | NUR ---
VISITED WITH PATIENT ON 11/26/2020. PATIENT DESIRES INPATIENT REHABILITATION AND WAS ACCEPTED TO PROGRAM. EDUIN TO LPN, CLINICAL LIAISON
--- NOTE | 2020-11-27 15:53 | NUR ---
DUE TO CHANGE IN MEDICAL CONDITION PATIENT IS DISCHARGED FROM [facility] AND ADMITTED TO ACUTE FLOOR.
== END 2020-11-27 16:10 | disposition short-term general hospital (02) | DRG 947 ==
LOC: D.REHAB 18:14
PROVIDERS: ADMIT Emergency Medicine; ATTEND Emergency Medicine
DX: R53.81 Other malaise (principal); J18.9 Pneumonia, unspecified organism; N17.9 Acute kidney failure, unspecified; L03.90 Cellulitis, unspecified; Z68.43 Body mass index [BMI] 50.0-59.9, adult; K92.0 Hematemesis; M54.9 Dorsalgia, unspecified; G89.29 Other chronic pain; K59.00 Constipation, unspecified; F03.90 Unspecified dementia, unspecified severity, without behavioral disturbance, psychotic disturbance, mood disturbance, and anxiety; E87.8 Other disorders of electrolyte and fluid balance, not elsewhere classified; E66.01 Morbid (severe) obesity due to excess calories; I73.9 Peripheral vascular disease, unspecified; R26.2 Difficulty in walking, not elsewhere classified

== ENCOUNTER 2020-11-27 15:01 | Inpatient (IN) | payer MEDICARE, OTHER ==
[~2020-11-27] VITALS: Ht 154.9 cm; Wt 131.1 kg
--- NOTE | ~2020-11-27 | OP ---
PATIENT NAME: TISH NICK MEDICAL RECORD: [id number] :37 LOCATION:[facility] ADMISSION DATE:11/27/20 SURGEON: SHERIF MOLINA MD DATE OF OPERATION: 11/29/2020 PROCEDURE: Upper endoscopy. PREOPERATIVE DIAGNOSES: Hematemesis and anemia. MEDICATION: Propofol per anesthesia. DESCRIPTION OF PROCEDURE: Upper endoscopy was performed. The endoscope was advanced through the mouth and advanced to the second part of the duodenum. The proximal and mid esophagus were normal. In the distal esophagus was very mild esophagitis. In the gastric body was mild gastritis. Random gastric biopsies were taken. There was duodenal erythema present consistent with mild duodenitis. The remainder of the exam was normal. The patient tolerated the procedure well. FINAL DIAGNOSES: Mild esophagitis, mild gastritis, mild erythema in the duodenum. PLAN: Check histology results. Advance diet. There was no overt source of bleeding. Would recommend continue p.o. PPI as an outpatient. Continue to monitor H&H and advance diet. TRANSINT:[id number] Voice Confirmation ID: [id number] DOCUMENT ID: [id number] SHERIF MOLINA MD CC: [id number] DICTATION DATE: 11/29/20 1426 TIRE MAKER: 11/29/20 1809 ADM IN [facility] [address] [place] [address]
--- NOTE | 2020-11-27 15:30 | NUR ---
RECEIVED PT TO 2201 VIA WHEELCHAIR FROM REHAB, PT ALERT AND ORIENTED AND PRESENT, DENIES PAIN AT THIS TIME, O2 AT 2LNC, BP 113/56, HR 71, O2 SAT 94%, DRESSING NOTED TO RIGHT LOWER LEG, DRESSING CDI, NO NEEDS VOICED, CALL LIGHT IN REACH, WLL MONITIOR
[2020-11-27 16:00] VITALS: BP 113/56
[2020-11-27 16:10] VITALS: BP 113/56; BMI 54.7
--- NOTE | 2020-11-27 17:00 | NUR ---
PIV STARTED IN LEFT HAND 22G, FLUSHES WITH EASE
[2020-11-27 17:04] LABS: INR 1.43 (0.85-1.17); PROTIME 16.2 SECONDS (11.6-15.0)
--- NOTE | 2020-11-27 17:40 | NUR ---
LAYING IN BED WITH AT BEDSIDE, NO DISTRESS NOTED, NO NEEDS VOICED, CALL LIGHT IN REACH, WILL MONITOR
[2020-11-27 20:00] VITALS: BP 171/70
--- NOTE | 2020-11-27 23:10 | NUR ---
PT REQUESTS MEDICATION TO HELP HER SLEEP AND SOMETHING FOR PAIN. KIKO LANDA PAGED.
--- NOTE | 2020-11-27 23:18 | NUR ---
REC'D CALLBACK FROM KIKO, NEW ORDERS GIVEN, SEE MAR. PT STATES SHE TAKES HYDROCODONE AT HOME WITH NO REACTION.
[2020-11-28] VITALS: BP 168/68
[2020-11-28 01:08] LABS: HEMATOCRIT 33.6 % (36.0-48.0); HEMOGLOBIN 10.2 g/dL (12-16)
[2020-11-28 04:00] VITALS: BP 153/48
[2020-11-28 07:41] LABS: ALBUMIN 2.8 g/dL (3.4-5.0); ANION GAP 16.7 mmol/L (8-16); BILIRUBIN - TOTAL 0.47 mg/dL (0.2-1.3); CALCIUM 9.3 mg/dL (8.5-10.1); CARBON DIOXIDE 23.2 mmol/L (21.0-32.0); CREATININE - SERUM 1.5 mg/dL (0.6-1.3); MAGNESIUM - SERUM 2.4 mg/dL (1.8-2.4); PHOSPHOROUS 4.2 mg/dL (2.5-4.9); POTASSIUM - SERUM 3.9 mmol/L (3.5-5.1); PROTEIN - SERUM 6.4 g/dL (6.4-8.2); VANCOMYCIN - RANDOM 15.7 ug/mL (10.0-20.0)
[2020-11-28 07:59] LABS: BASOPHILS 0.2 % (0-2); EOSINOPHILS 7.4 % (0-7); HEMATOCRIT 32.9 % (36.0-48.0); IMMATURE GRANULOCYTES 0.3 % (0-5); LYMPHOCYTE ABS# 1.25 10x3/uL (1.18-3.74); LYMPHOCYTES 10.7 % (15-50); MCH 24.4 pg (26.0-34.0); MCHC 30.4 g/dL (31.0-37.0); MCV 80.2 fL (80.0-100.0); MONOCYTES 6.7 % (2-11); NEUTROPHIL ABS# 8.74 10x3/uL (1.56-6.13); NEUTROPHILS 74.7 % (40-80); PLATELET COUNT 150 10x3/uL (130-400); RDW 18.1 % (11.5-14.5); WBC 11.7 10x3/uL (4.8-10.8)
[2020-11-28 09:10] VITALS: BP 138/62
[2020-11-28 12:50] LABS: HEMATOCRIT 35.6 % (36.0-48.0); HEMOGLOBIN 10.7 g/dL (12-16)
[2020-11-28 13:37] VITALS: BP 154/73
[2020-11-28 17:03] VITALS: BP 121/60
[2020-11-28 20:00] VITALS: BP 162/37
[2020-11-28 20:25] LABS: HEMATOCRIT 36.5 % (36.0-48.0)
--- NOTE | 2020-11-28 21:00 | NUR ---
PT SITTING UP IN BEDSIDE CHAIR WITHOUT DISTRESS. ORIENTED TO SELF ONLY. GAVE NORCO FOR PAIN TO RIGHT KNEE 05/11. ASSISTED PT BACK TO BED. DENIES OTHER NEEDS AT THIS TIME. CL IN REACH
[2020-11-29] VITALS: BP 155/41
[2020-11-29 04:00] VITALS: BP 142/54
[2020-11-29 06:51] LABS: BASOPHILS 0.2 % (0-2); EOSINOPHILS 7.6 % (0-7); HEMATOCRIT 34.4 % (36.0-48.0); HEMOGLOBIN 10.3 g/dL (12-16); IMMATURE GRANULOCYTES 0.3 % (0-5); LYMPHOCYTE ABS# 0.49 10x3/uL (1.18-3.74); LYMPHOCYTES 4.3 % (15-50); MCH 24.6 pg (26.0-34.0); MCHC 29.9 g/dL (31.0-37.0); MCV 82.1 fL (80.0-100.0); MONOCYTES 10.6 % (2-11); NEUTROPHIL ABS# 8.85 10x3/uL (1.56-6.13); PLATELET COUNT 167 10x3/uL (130-400); RBC 4.19 10x6/uL (4.00-5.40); RDW 18.2 % (11.5-14.5); WBC 11.5 10x3/uL (4.8-10.8)
[2020-11-29 07:10] LABS: ANION GAP 17.1 mmol/L (8-16); CALCIUM 8.8 mg/dL (8.5-10.1); CARBON DIOXIDE 21.3 mmol/L (21.0-32.0); CREATININE - SERUM 1.7 mg/dL (0.6-1.3); MAGNESIUM - SERUM 2.2 mg/dL (1.8-2.4); PHOSPHOROUS 4.2 mg/dL (2.5-4.9); POTASSIUM - SERUM 4.4 mmol/L (3.5-5.1); VANCOMYCIN - RANDOM 19.7 ug/mL (10.0-20.0)
--- NOTE | 2020-11-29 08:19 | NUR ---
REHAB PRESCREEN RECEIVED. PATIENT WAS PREVIOUSLY IN REHAB UNTIL SHE STARTED HAVE SOME HEMATAEMESIS. YESTERDAY WE WERE WAITING ON GI DETERMINATION, AND IT LOOKS IF SHE IS HAVING AN EGD TODAY. WE WILL CONTINUE TO FOLLOW, AND IF THE PATIENT AND SPOUSE WOULD LIKE TO RETURN TO REHAB- WE WILL START THE SCREEN AGAIN. THANK YOU FOR THE REFERRAL, NELSON CAREY RN CLINICAL LIAISON, INPATIENT REHAB.
[2020-11-29 08:37] VITALS: BP 142/57
--- NOTE | 2020-11-29 10:30 | NUR ---
PT UP TO CHAIR WITH ASSIST FROM PT/OT
[2020-11-29 10:40] VITALS: Ht 154.9 cm; Wt 131.1 kg
--- NOTE | 2020-11-29 12:24 | NUR ---
WE WILL BE GLAD TO TAKE THE PATIENT BACK TO INPATIENT REHAB. IF SHE IS DISCHARGED BACK TO US BEFORE MIDNIGHT TONIGHT (11/29/20), IT WILL JUST BE AN INTERRUPED STAY. IF SHE IS NOT STABLE ENOUGH TO COME TONIGHT, ANOTHER SCREEN WILL NEED TO BE DONE, AND WE WOULD BE ABLE TO ACCEPT HER ON WEDNESDAY. I HAVE ALREADY SPOKE WITH ISIDRO LAWSON RN CM. THANK YOU FOR THE REFERRAL NELSON CAREY RN CLINICAL LIAISON, INPATIENT REHAB.
[2020-11-29 12:52] VITALS: BP 141/61
--- NOTE | 2020-11-29 12:54 | NUR ---
OT NOTE: PT COMPLETED SUPINE TO SIT WITH MOD A. PT COMPLETED SIT TO STAND WITH MIN-MOD A. PT COMPLETED EOB SITTING WITH SBA. PT COMPLETED FACE HYGIENE WITH SET UP. PT C/O NECK PAIN. REPORTED TO NURSING. [phone] EDUARDO MAHONEY COTA
--- NOTE | 2020-11-29 14:07 | NUR ---
PT GONE FOR EGD
[2020-11-29 17:31] VITALS: BP 125/72
--- NOTE | 2020-11-29 20:30 | NUR ---
WATCHING TV WITHOUT COMPLAITNS VOICED. RESP UNALBORED. O2 @ 2L PER NC ON. NO DISTRESS NOTED. CL IN REACH
--- NOTE | 2020-11-30 02:42 | NUR ---
I have reviewed this patient and I concur with the Shift Assessment completed by the Licensed Practical Nurse today this shift.
[2020-11-30 05:51] LABS: BASOPHILS 0.2 % (0-2); EOSINOPHILS 7.6 % (0-7); HEMATOCRIT 33.5 % (36.0-48.0); HEMOGLOBIN 10.3 g/dL (12-16); IMMATURE GRANULOCYTES 0.5 % (0-5); LYMPHOCYTE ABS# 0.69 10x3/uL (1.18-3.74); LYMPHOCYTES 6.2 % (15-50); MCH 24.9 pg (26.0-34.0); MCHC 30.7 g/dL (31.0-37.0); MCV 81.1 fL (80.0-100.0); MONOCYTES 12.3 % (2-11); NEUTROPHIL ABS# 8.21 10x3/uL (1.56-6.13); NEUTROPHILS 73.2 % (40-80); PLATELET COUNT 153 10x3/uL (130-400); RBC 4.13 10x6/uL (4.00-5.40); WBC 11.2 10x3/uL (4.8-10.8)
[2020-11-30 06:03] LABS: ANION GAP 14.5 mmol/L (8-16); CARBON DIOXIDE 23.9 mmol/L (21.0-32.0); CREATININE - SERUM 1.8 mg/dL (0.6-1.3); MAGNESIUM - SERUM 2.4 mg/dL (1.8-2.4); PHOSPHOROUS 3.9 mg/dL (2.5-4.9); POTASSIUM - SERUM 4.4 mmol/L (3.5-5.1); VANCOMYCIN - RANDOM 25.8 ug/mL (10.0-20.0)
[2020-11-30 08:07] VITALS: BP 134/58
[2020-11-30 12:00] VITALS: BP 137/40
[2020-11-30 17:29] VITALS: BP 134/42
[2020-11-30 20:00] VITALS: BP 145/63
--- NOTE | 2020-12-01 01:27 | NUR ---
I have reviewed this patient and I concur with the Shift Assessment completed by the Licensed Practical Nurse today this shift.
[2020-12-01 04:00] VITALS: BP 133/40
[2020-12-01 07:59] LABS: BASOPHILS 0.2 % (0-2); EOSINOPHILS 12.4 % (0-7); HEMATOCRIT 32.3 % (36.0-48.0); HEMOGLOBIN 9.8 g/dL (12-16); IMMATURE GRANULOCYTES 0.8 % (0-5); LYMPHOCYTE ABS# 0.96 10x3/uL (1.18-3.74); MCH 24.6 pg (26.0-34.0); MCHC 30.3 g/dL (31.0-37.0); MEAN PLATELET VOLUME 12.3 fL (7.4-10.4); MONOCYTES 10.1 % (2-11); NEUTROPHIL ABS# 7.17 10x3/uL (1.56-6.13); NEUTROPHILS 67.5 % (40-80); PLATELET COUNT 144 10x3/uL (130-400); RBC 3.99 10x6/uL (4.00-5.40); RDW 17.9 % (11.5-14.5); WBC 10.6 10x3/uL (4.8-10.8)
[2020-12-01 08:18] LABS: CALCIUM 8.9 mg/dL (8.5-10.1); CARBON DIOXIDE 24.5 mmol/L (21.0-32.0); CREATININE - SERUM 1.9 mg/dL (0.6-1.3); MAGNESIUM - SERUM 2.6 mg/dL (1.8-2.4); PHOSPHOROUS 3.3 mg/dL (2.5-4.9); POTASSIUM - SERUM 4.5 mmol/L (3.5-5.1); VANCOMYCIN - RANDOM 22.7 ug/mL (10.0-20.0)
[2020-12-01] MEDS ORDERED: MYLANTA / MAALO30 ML PO (09:08)
[2020-12-01] MEDS ORDERED: CARAFATE1 G PO (09:08)
[2020-12-01] MEDS ORDERED: Merrem 1 GM/NS 100 M IVPB (09:08)
[2020-12-01] MEDS ORDERED: VANCOMYCIN 1 GM/1 G1 IV (09:08)
[2020-12-01] MEDS ORDERED: MELATONIN 3 MG1 TAB PO (09:09)
[2020-12-01 09:31] VITALS: BP 145/65
--- NOTE | 2020-12-01 12:00 | NUR ---
DISCHARGE INSTRUCTIONS REVIEWED AND SIGNED WITH , PATENT IV IN RIGHT FA CLEAN DRY INTACT, PT LEFT VIA BED TRANSPORTED TO REHAB BY HOSPITAL TRANSPORT, PT IN STABLE CONDITION, NO SIGNS OF DISTRESS
== END 2020-12-01 12:00 | DRG 378 ==
LOC: D.M2 15:01 → D.MS 15:59
PROVIDERS: Emergency Medicine; Internal Medicine Gastroenterology; ADMIT Family Medicine; ATTEND Family Medicine
PROC: 0DB78ZX Excision of Stomach, Pylorus, Via Natural or Artificial Opening Endoscopic, Diagnostic (ICD-10-PCS; principal; 2020-11-29 13:45)
DX: K29.71 Gastritis, unspecified, with bleeding (principal); Z68.43 Body mass index [BMI] 50.0-59.9, adult; K92.0 Hematemesis; I70.209 Unspecified atherosclerosis of native arteries of extremities, unspecified extremity; E11.9 Type 2 diabetes mellitus without complications; E11.40 Type 2 diabetes mellitus with diabetic neuropathy, unspecified; R60.9 Edema, unspecified; D64.9 Anemia, unspecified

== ENCOUNTER 2020-12-01 11:00 | Inpatient (IN) | payer MEDICARE, OTHER ==
[~2020-12-01] VITALS: Ht 154.9 cm; Wt 95.7 kg
[~2020-12-01 11:00] MED LIST changes: +CARAFATE1 G PO; +MELATONIN 3 MG1 TAB PO; +MYLANTA / MAALO30 ML PO; +Merrem 1 GM/NS 100 M IVPB
[2020-12-01 15:42] VITALS: BP 151/55; BMI 39.9
[2020-12-01 19:00] VITALS: BP 134/68
--- NOTE | 2020-12-01 20:00 | NUR ---
PATIENT RECEIVED SITTING UP IN LOW BED. ASSESSMENT & VITAL SIGNS DONE. NO C/O PAIN OR DISTRESS. ALARM ON. BEDSIDE TABLE & CALL LIGHT WITHIN REACH. WILL CONTINUE TO MONITOR.
--- NOTE | 2020-12-02 02:29 | NUR ---
PATIENT IV INFILTRATING LEFT ARM. IV STOPPED & DISCONNECTED FROM LEFT ARM. CHARGE NURSE COULD NOT FIND VIABLE VEIN. LEARNING OPERATIONS SPECIALIST CALLED TO ASSIST.
--- NOTE | 2020-12-02 03:15 | NUR ---
[employer] COMMER[employer] CONSULTANT CAME TO PATIENTS ROOM. PATIENT IV STARTED WITH 22G IN LEFT HAND. IV INFUSING AT THIS TIME. NO C/O PAIN. PATIENT SLEEPING. BED LOW. CALL LIGHT WITHIN REACH. WILL CONTINUE TO MONITOR.
--- NOTE | 2020-12-02 04:14 | NUR ---
PATIENT EYES CLOSED. RESPIRATIONS 18 & EVEN. NO ADVERSE REACTION TO IV ANTIBIOTIC. BED LOW. CALL LIGHT WITHIN REACH. WILL CONTINUE TO MONITOR.
[2020-12-02 08:30] VITALS: BP 125/67
[2020-12-02 10:11] LABS: CALCIUM 8.8 mg/dL (8.5-10.1); CARBON DIOXIDE 19.5 mmol/L (21.0-32.0); CREATININE - SERUM 1.9 mg/dL (0.6-1.3); POTASSIUM - SERUM 4.5 mmol/L (3.5-5.1)
[2020-12-02 10:32] LABS: BASOPHILS 0.1 % (0-2); HEMATOCRIT 33.1 % (36.0-48.0); HEMOGLOBIN 9.9 g/dL (12-16); IMMATURE GRANULOCYTES 0.7 % (0-5); LYMPHOCYTE ABS# 0.81 10x3/uL (1.18-3.74); MCH 24.3 pg (26.0-34.0); MCHC 29.9 g/dL (31.0-37.0); MCV 81.3 fL (80.0-100.0); MEAN PLATELET VOLUME 11.4 fL (7.4-10.4); MONOCYTES 10.3 % (2-11); NEUTROPHIL ABS# 7.41 10x3/uL (1.56-6.13); NEUTROPHILS 63.9 % (40-80); PLATELET COUNT 150 10x3/uL (130-400); RBC 4.07 10x6/uL (4.00-5.40); RDW 18.1 % (11.5-14.5); WBC 11.6 10x3/uL (4.8-10.8)
--- NOTE | 2020-12-02 12:09 | NUR ---
PATIENT ADMITTED TO [facility] FROM ACUTE FLOOR. DISCHARGE PLANS ARE FOR HER TO RETURN TO HER HOME WITH FAMILY. WILL CONTINUE TO FOLLOW WITH PATIENT.
[2020-12-02 16:24] VITALS: Ht 154.9 cm; Wt 95.7 kg
--- NOTE | 2020-12-02 18:03 | NUR ---
PT RESTING IN BED WITH EYES OPEN CALL LIGHT IN REACH WILL MONITER
--- NOTE | 2020-12-02 18:41 | NUR ---
PT RESTING IN BED WITH EYES OPEN CALL LIGHT IN REACH NO PROBLEMS WILL MONITER
[2020-12-02 21:25] VITALS: BP 143/53
[2020-12-03 07:46] VITALS: BP 135/51
--- NOTE | 2020-12-03 08:00 | NUR ---
PT RESTING IN BED WITH EYES OPEN CALL LIGHT IN REACH NO PROBLEMS WILL MONITER
--- NOTE | 2020-12-03 18:10 | NUR ---
PT RESTING IN BED WITH EYES OPEN CALL LIGHT IN REACH WILL MONITER
--- NOTE | 2020-12-03 19:36 | NUR ---
PT UP IN WC, NO IMMEDIATE NEEDS NOTED OR VERBALIZED, FLUIDS/CL WITHIN REACH, ALARMS ON AND WORKING
[2020-12-03 20:28] VITALS: BP 146/52
--- NOTE | 2020-12-03 20:28 | RHP ---
PATIENT: TISH NICK MEDICAL RECORD: [id number] ACCOUNT: [id number] LOCATION:[facility] D.1113 : 37 ADMISSION DATE: 12/01/20 REHABILITATION HISTORY AND PHYSICAL EXAMINATION POST ADMISSION PHYSICIAN EXAMINATION POST ADMISSION PHYSICAL EXAMINATION AND HISTORY AND PHYSICAL ADMITTING DIAGNOSIS: Debility. HISTORY OF PRESENT ILLNESS: The patient is a lady that we actually had down in the rehab, but we had to send him back upstairs secondary to hematemesis. The patient was admitted to inpatient rehab on 11/26/2020 with pneumonia, restrictive airway disease and obesity. In less than 24 hours, she started having a little bit of problems with respiratory distress. She started throwing up blood and she was transferred back upstairs. She apparently reported no further emesis up stairs, but complained of burning in her throat when this did happen. She was continued on vancomycin and Merrem from her pneumonia upstairs. She had an EGD done on 11/29/2020. The findings were normal esophagus. She had mild gastritis and biopsies were taken at that time. She had some duodenal erythema. Her diet was advanced. She was placed on PPIs. She is now being transferred back down to rehabilitation. She apparently still is mod assist for sit to stand and bed to chair. She can only ambulate 5 feet, mod assist for truncal support and needs help with sit to stand secondary to lifting and steadying. The patient also needs verbal cues for assistive device management, backing up, reaching around. She has a decreased attention span. She requires frequent cues once again. The patient will be admitted back here. She has had considered improvement in her therapy evaluations from her previous admission here, but she still has decreased activity tolerance, decreased strength, balance deficit, decreased range of motion, gait disturbance, impaired mobility. She is a high fall risk and self-care deficits. These are all barriers for discharge at this time. She will require all of this and get back to her prior level of functioning. COMORBIDITIES: Include acute kidney injury, acute mental status changes, cellulitis, chronic back pain, confusion, constipation, dementia, difficulty walking electrolyte abnormalities, morbid obesity, pneumonia, peripheral vascular disease. PAST MEDICAL HISTORY: Significant for CVA, glaucoma, neuropathy, diabetes, peripheral vascular disease, chronic back pain, weakness. She has had neuropathy, constipation, dementia. PAST SURGICAL HISTORY: Includes hysterectomy, cholecystectomy, and knee replacement. ALLERGIES: SULFA, FLOXIN, CIPRO AND HYDROCODONE. CURRENT MEDICATIONS: Floranex daily, vancomycin 1 gram q.24 hours, Metamucil 1 packet daily, potassium 198 daily, Bactroban ointment, Estefanía 60 mg b.i.d., Trajenta 5 mg daily, furosemide 40 mg daily, Plavix 75 mg daily, calcium carbonate 500 mg daily, aspirin 325 daily, glimepiride 2 mg daily, and Protonix 40 mg daily. She is on melatonin 9 mg at bedtime. She is on guaifenesin 1200 mg b.i.d., atorvastatin 80 mg at bedtime, Carafate 1 gram t.i.d. and q.a.c., Mylanta as needed. She is on a low resistance sliding scale insulin, albuterol, HISTORY AND PHYSICAL [id number] NIX,TISH Merrem 1 gram q.12 hours. She is on Zofran 4 mg q.6 hours, DuoNeb updrafts, hydrocodone 5/325 one tab q.6 hours p.r.n., Flonase nasal spray, Amphogel p.r.n., and Tylenol as needed. HABITS: No alcohol or tobacco use. FAMILY HISTORY: Noncontributory. SOCIAL HISTORY: The patient hopes to return back home and get back to her prior level of functioning. REVIEW OF SYSTEMS: GENERAL: Does complain of weakness and fatigue. HEENT: Denies cold, cough, or congestion. CARDIOVASCULAR: Denies any chest pain. PHYSICAL EXAMINATION: VITAL SIGNS: Stable and afebrile. GENERAL: A morbidly obese female, in no acute distress upon exam. HEENT: Normocephalic and atraumatic. Mucosa moist. NECK: Supple. No lymphadenopathy. LUNGS: Clear in upper ritter. HEART: Regular rate and rhythm. ABDOMEN: Soft, benign, nondistended. Positive bowel sounds times 4. EXTREMITIES: No clubbing, cyanosis or edema. NEUROLOGIC: She is slow to mentate and has diffuse weakness. LABORATORY DATA: Pending at this time. ASSESSMENT: This is an 85-year-old female patient admitted to rehab with a working diagnosis of debility. The patient has potential to make improvement. We instituted the following multidisciplinary therapies including, not limited to physical, occupational, respiratory, speech, nutritional services, prosthetics and orthotics. Given her complex medical condition and risks for more complications, rehabilitation services cannot be provided at a low level of care such as care home facility. PLAN: 1. Admit to [facility] for inpatient therapy to include the following disciplines; A. Physical therapy to improve gait, all transfer skills and bed mobility to a modified independent level. B. Occupational therapy to improve activities of daily living. C. Case management to help with discharge planning and placement options. D. Nutrition to assist with nutritional needs. E. Rehabilitation nursing to assist in monitoring the patient's underlying medical conditions and to assist with any type of bowel or bladder management. 2. The patient's current medication and medical care will be continued. 3. Will be placed on standard fall precautions. 4. The patient's estimated length of stay is approximately 7-10 days. 5. We will discuss this patient during care team staff meeting this week. TRANSINT:[id number] Voice Confirmation ID: [id number] DOCUMENT ID: [id number] HISTORY AND PHYSICAL [id number] TISH NICK notes whether there has been none or any medical/functional change since admission: - RITCHIE attests patient continues to be appropriate for IRF: - NABIL CALDWELL MD at 2028 CC: [id number] DICTATION DATE: 12/02/20 0852 CHILDREN'S AIDE: 12/02/20 1138 ADM IN [facility] [address] [place] [address]
--- NOTE | 2020-12-04 00:35 | NUR ---
PT IV STARTED 24G IN LEFT HAND, DAYSHIFTS VANCOMYCIN/250ML STARTED AT 107ML/HR DUE TO SMALL/WEAK VEINS OF PT, VEINS HOLDING UP NOT BLOWING, NO LEAKS, PT SLEEPING, NO C/O PAIN OR SWELLING
[2020-12-04 07:38] VITALS: BP 150/50
[2020-12-04 08:31] LABS: BASOPHILS 0.2 % (0-2); HEMATOCRIT 33.3 % (36.0-48.0); HEMOGLOBIN 10.2 g/dL (12-16); IMMATURE GRANULOCYTES 0.7 % (0-5); LYMPHOCYTE ABS# 1.18 10x3/uL (1.18-3.74); LYMPHOCYTES 9.4 % (15-50); MCH 24.9 pg (26.0-34.0); MCHC 30.6 g/dL (31.0-37.0); MCV 81.2 fL (80.0-100.0); MEAN PLATELET VOLUME 12.1 fL (7.4-10.4); MONOCYTES 6.8 % (2-11); NEUTROPHIL ABS# 6.56 10x3/uL (1.56-6.13); NEUTROPHILS 51.9 % (40-80); PLATELET COUNT 141 10x3/uL (130-400); RDW 17.9 % (11.5-14.5); WBC 12.6 10x3/uL (4.8-10.8)
[2020-12-04 08:45] LABS: ANION GAP 13.1 mmol/L (8-16); CALCIUM 9.2 mg/dL (8.5-10.1); CREATININE - SERUM 1.8 mg/dL (0.6-1.3); POTASSIUM - SERUM 4.8 mmol/L (3.5-5.1); VANCOMYCIN - RANDOM 23.1 ug/mL (10.0-20.0)
[2020-12-04 08:47] LABS: CARBON DIOXIDE 25.7 mmol/L (21.0-32.0)
--- NOTE | 2020-12-04 16:04 | NUR ---
CARE TEAM MEETING: PATIENT IS PROGRESSING IN THERAPY. HER SPOUSE REQUEST THAT SHE DISCHARGE HOME ON 12/06/20. WILL CONTINUE TO FOLLOW WITH PATIENT AND ASSIST WITH HER NEEDS.
[2020-12-04 20:30] VITALS: BP 146/48
--- NOTE | 2020-12-04 23:31 | NUR ---
PT IN BED, NO IMMEDIATE NEEDS NOTED, FLUIDS/CL WITHIN REACH, PRECAUTIONS IN PLACE
--- NOTE | 2020-12-05 01:30 | NUR ---
STARTED IV ABX, IV PATENT, PT VEINS FRAGILE MEROPENEM RUNNING AT 67 ML/HR OVER 3HR, SUGGEST RUNNING ABX VANCO OVER AT LEAST 2HR INSTEAD OF 1HR. WILL PASS ON TO NEXT SHIFT
[2020-12-05 07:48] LABS: CREATININE - SERUM 1.7 mg/dL (0.6-1.3); VANCOMYCIN - RANDOM 19.8 ug/mL (10.0-20.0)
[2020-12-05 08:14] VITALS: BP 131/45
--- NOTE | 2020-12-05 09:00 | NUR ---
SHE IS SETTING UP IN THE WHEELCHAIR FOR BREAKFAST. SHE IS WEARING 2 LITERS NC. SHE TOOK HER MEDICATIONS 1 PILL AT A TIME. HER ANAMARIA AREA AND COCCYX IS RED WITH THE SKIN PEELING, CREAM APPLIED. SHE IS USING THE WHEELCHAIR TO GO TO THE BATHROOM. SHE HAS A DRESSING TO THE RIGHT LOWER LEG. THE LEFT LOWER LEG HAS REDNESS. SHE IS CONFUSED. THE CALL LIGHT IS WITHIN REACH AND THE BED ALARM IS ON.
--- NOTE | 2020-12-05 18:11 | NUR ---
DRESSING CHANGED TO THE LOWER RIGHT LEG, HAS A SMALL ROUND ABRASION JUST BELOW THE RIGHT KNEE, BELOW THAT ON THE OUTER CALF AREA THE SKIN IS PEELING AND WEAPING. THE CALL LIGHT IS WTIHIN REACH AND THE CHAIR ALARM IS ON.
--- NOTE | 2020-12-05 19:40 | NUR ---
RECEIVED PATIENT LYING IN BED. ALERT AND ORIENTED TO SELF AND PLACE. CALM AND COOPERATIVE. O2 AT 2L/MIN NC. EXPIRATORY WHEEZES NOTED IN LUNGS BILATERALLY. PT REPORTS PRODUCTIVE COUGH. CALL LIGHT WITHIN REACH. DENIES NEEDS AT THIS TIME.
--- NOTE | 2020-12-05 20:35 | NUR ---
HS MEDS ADMINISTERED WITHOUT DIFFICULTY. PRN NASAL SPRAY ADMINISTERED PER PT REQUEST. FSBS 237 WITH SS COVERAGE. PT INCONTINENT. INCONTINENCE CARE PROVIDED AND PADS CHANGED. DENIES FURTHER NEEDS. CALL LIGHT WITHIN REACH.
[2020-12-05 20:36] VITALS: BP 137/59
[2020-12-06 07:09] LABS: BASOPHILS 0.2 % (0-2); EOSINOPHILS 35.9 % (0-7); HEMATOCRIT 32.1 % (36.0-48.0); HEMOGLOBIN 9.6 g/dL (12-16); IMMATURE GRANULOCYTES 0.7 % (0-5); LYMPHOCYTE ABS# 0.81 10x3/uL (1.18-3.74); LYMPHOCYTES 6.9 % (15-50); MCH 24.1 pg (26.0-34.0); MCHC 29.9 g/dL (31.0-37.0); MCV 80.5 fL (80.0-100.0); MONOCYTES 7.3 % (2-11); NEUTROPHIL ABS# 5.75 10x3/uL (1.56-6.13); PLATELET COUNT 139 10x3/uL (130-400); RBC 3.99 10x6/uL (4.00-5.40); WBC 11.7 10x3/uL (4.8-10.8)
[2020-12-06 07:24] LABS: ANION GAP 11.1 mmol/L (8-16); CALCIUM 9.1 mg/dL (8.5-10.1); CARBON DIOXIDE 27.6 mmol/L (21.0-32.0); CREATININE - SERUM 1.6 mg/dL (0.6-1.3); POTASSIUM - SERUM 4.7 mmol/L (3.5-5.1); VANCOMYCIN - RANDOM 15.9 ug/mL (10.0-20.0)
[2020-12-06 08:11] VITALS: BP 153/60
[2020-12-06] MEDS ORDERED: LASIX40 MG PO (08:36)
[2020-12-06] MEDS ORDERED: HYDROCODON-ACE1 EAC7 PO (08:36)
--- NOTE | 2020-12-06 10:45 | NUR ---
PATIENT DISCHARGING HOME TODAY WITH FAMILY. [employer] REPLACED BY [facility] WILL RESUME THERAPY AT HOME. [facility] WILL DELIVER O2 TO PATIENT. DR. LOYA 12/18/20 @ 11:30. LEOBARDO SIGNED, IMM SERVED AND EXPLAINED, ONE GIVEN TO PATIENT TO PATIENT AND ONE FILED IN CHART. DISCHARGE INSTRUCTIONS FAXED TO PCP, HOME HEALTH AND REVIEWED WITH PATIENT AND SPOUSE. NO COMPARE DATA REVIEWED .
--- NOTE | 2020-12-06 12:51 | NUR ---
DISCHARGE INSTRUCTIONS GONE OVER WITH PATIENT AND . DISCHARGE MEDICATIONS CALL INTO [facility]. PATIENT HELPED OUT TO CAR BY STAFF
[2020-12-07] MEDS ORDERED: XALATAN 0.0052.5 ML EACH EYE (17:06)
[2020-12-07] MEDS ORDERED: AMPHOGEL PO (17:08)
== END 2020-12-06 12:58 | disposition home health service (06) | DRG 947 ==
LOC: D.REHAB 11:00
PROVIDERS: ADMIT Emergency Medicine; ATTEND Emergency Medicine
DX: R53.81 Other malaise (principal); J18.9 Pneumonia, unspecified organism; N17.9 Acute kidney failure, unspecified; L03.90 Cellulitis, unspecified; G89.29 Other chronic pain; K59.00 Constipation, unspecified; F03.90 Unspecified dementia, unspecified severity, without behavioral disturbance, psychotic disturbance, mood disturbance, and anxiety; R26.2 Difficulty in walking, not elsewhere classified; E87.8 Other disorders of electrolyte and fluid balance, not elsewhere classified; E66.01 Morbid (severe) obesity due to excess calories; I73.9 Peripheral vascular disease, unspecified; Z68.39 Body mass index [BMI] 39.0-39.9, adult; R41.82 Altered mental status, unspecified; D64.9 Anemia, unspecified; E11.9 Type 2 diabetes mellitus without complications; R53.83 Other fatigue; R32 Unspecified urinary incontinence; I51.7 Cardiomegaly

== ENCOUNTER 2020-12-07 13:14 | Inpatient (IN) | payer MEDICARE, OTHER ==
[~2020-12-07] VITALS: Ht 154.9 cm; Wt 128.4 kg
[~2020-12-07 13:14] MED LIST changes: +LASIX40 MG PO
[2020-12-07 14:18] LABS: BASOPHILS 0.2 % (0-2); EOSINOPHILS 2.7 % (0-7); HEMATOCRIT 33.3 % (36.0-48.0); HEMOGLOBIN 9.9 g/dL (12-16); IMMATURE GRANULOCYTES 0.7 % (0-5); LYMPHOCYTE ABS# 0.66 10x3/uL (1.18-3.74); LYMPHOCYTES 5.5 % (15-50); MCH 24.1 pg (26.0-34.0); MCHC 29.7 g/dL (31.0-37.0); MEAN PLATELET VOLUME 11.9 fL (7.4-10.4); MONOCYTES 1.9 % (2-11); NEUTROPHIL ABS# 10.71 10x3/uL (1.56-6.13); PLATELET COUNT 123 10x3/uL (130-400); RBC 4.11 10x6/uL (4.00-5.40); RDW 18.1 % (11.5-14.5)
[2020-12-07 14:23] LABS: INR 1.42 (0.85-1.17); PROTIME 16.1 SECONDS (11.6-15.0)
[2020-12-07 14:24] LABS: APTT 35.9 SECONDS (22.8-39.4)
[2020-12-07 14:26] LABS: BILIRUBIN NEGATIVE (NEGATIVE); KETONE NEGATIVE (NEGATIVE); NITRITE NEGATIVE (NEGATIVE)
[2020-12-07 14:30] LABS: WHITE CELLS - URINE 0-5 HPF (0-4)
[2020-12-07 14:31] LABS: BACTERIA FEW HPF (NONE SEEN); SQUAMOUS EPITHELIAL 0-5 HPF (0-4)
[2020-12-07 14:33] LABS: AMORPHOUS SEDIMENT MODERATE LPF (NONE SEEN)
[2020-12-07 14:41] LABS: CALC OSMOLALITY 303 mosm/kg (275-300); CALCIUM 9.5 mg/dL (8.5-10.1); CARBON DIOXIDE 26.3 mmol/L (21.0-32.0); CHLORIDE - SERUM 105 mmol/L (98-107); CREATININE - SERUM 1.7 mg/dL (0.6-1.3); GLUCOSE 220 mg/dL (74-106); POTASSIUM - SERUM 4.9 mmol/L (3.5-5.1); SODIUM 142 mmol/L (136-145); UREA NITROGEN 52 mg/dL (7-18); eGFR NON AFRICAN AMERICAN 30 mL/min (90-120)
[2020-12-07 14:56] LABS: ALBUMIN 3.1 g/dL (3.4-5.0); ALKALINE PHOSPHATASE 143 U/L (30-120); ALT (SGPT) 14 U/L (10-68); BILIRUBIN - TOTAL 0.71 mg/dL (0.2-1.3); CKMB 1.9 U/L (0.0-3.6); CREATINE KINASE 72 UL (21-215); TROPONIN-I 0.019 ng/mL (0.000-0.060)
[2020-12-07 15:39] VITALS: BP 146/83
[2020-12-07 16:38] VITALS: BP 144/69
[2020-12-07] MEDS ORDERED: XALATAN 0.0052.5 ML EACH EYE (17:06)
[2020-12-07] MEDS ORDERED: AMPHOGEL PO (17:08)
--- NOTE | 2020-12-07 17:14 | NUR ---
ALERT AND ORIENTED TO SELF AND FAMILIAR FACES. O2 2L N/C EXPIRATORY WHEEZES NOTED TO BUQ ANTERIOR AND DIMINISHED TO BLQ. ABDOMEN OBESE WITH PANNUS NOTED. ERRYTHEMA NOTED TO BLE WITH GENERALIZED EDEMA NOTED. GENERALIZED BRUISES NOTED TO BUE WITH WEAKNESS TO BUE AND BLE. FALL PRECAUTIONS IN PLACE. PRESENT AND ENCOURAGED TO USE CALL LIGHT FOR ASSSIT.
--- NOTE | 2020-12-07 18:33 | NUR ---
ATE MOST OF SUPPER. STATED SHE WAS FULL. FSBS WAS 322. GIVEN 8 UNITS REGULAR SUBQ PER SS. NO CHANGES NOTED. DENIES NEEDS. PURWICK IN PLACE FOR INCONTINENCE.
--- NOTE | 2020-12-08 03:43 | NUR ---
ASSUMED CARE OF PT AFTER REPORT/ROUNDS. PT VERY CONFUSED TO WHERE SHE IS AND WHY SHE IS HERE. PT DOES NOT KNOW DATE OR TIME. PT HAD YEAST FOUND UNDER ARMPITS, BREASTS, ABD FOLDS AND ANAMARIA AREA. MONIKA O/C NOTIFIED WITH NEW ORDERS REC'D. PT IS IN BED RESTING AT THIS TIME. PT HAS FRAGILE SKIN AND REFUSING BP TO BE TAKEN.
[2020-12-08 07:55] LABS: BASOPHILS 0.1 % (0-2); EOSINOPHILS 1.4 % (0-7); HEMATOCRIT 30.3 % (36.0-48.0); HEMOGLOBIN 9.1 g/dL (12-16); IMMATURE GRANULOCYTES 0.9 % (0-5); LYMPHOCYTE ABS# 0.83 10x3/uL (1.18-3.74); LYMPHOCYTES 11.2 % (15-50); MCH 23.7 pg (26.0-34.0); MONOCYTES 12.9 % (2-11); NEUTROPHIL ABS# 5.43 10x3/uL (1.56-6.13); NEUTROPHILS 73.5 % (40-80); PLATELET COUNT 133 10x3/uL (130-400); RBC 3.84 10x6/uL (4.00-5.40)
[2020-12-08 07:57] LABS: MCV 78.9 fL (80.0-100.0); WBC 7.4 10x3/uL (4.8-10.8)
--- NOTE | 2020-12-08 08:13 | NUR ---
AWAKE AND ALERT. ORIENTED X3. SOME CONFUSION NOTED TO SITUATION. WILL MONITOR. PLACED ON BED SAINI PER STAFF. NO BM AT THIS TIME. LUNGS ARE CLEAR BUT DIMINISHED IN LOWER LOBES. ENCOURAGED TO USE IS. POOR EFFORT WITH THIS. SKIN IS INTACT WITH SOME SMALL AREAS OF SCABS AND ABRASIONS. SL TO LEFT HAND IS PATENT WITHOUT REDNESS AT INSERTION SITE. PUREWICK IN PLACE AT THIS TIME. DENIES NEEDS.
[2020-12-08 08:14] VITALS: BP 134/75
[2020-12-08 08:23] LABS: ALBUMIN 2.9 g/dL (3.4-5.0); ANION GAP 13.5 mmol/L (8-16); BILIRUBIN - TOTAL 0.57 mg/dL (0.2-1.3); CALCIUM 8.8 mg/dL (8.5-10.1); CARBON DIOXIDE 26.6 mmol/L (21.0-32.0); CREATININE - SERUM 1.7 mg/dL (0.6-1.3); MAGNESIUM - SERUM 2.6 mg/dL (1.8-2.4); POTASSIUM - SERUM 5.1 mmol/L (3.5-5.1); PROTEIN - SERUM 6.3 g/dL (6.4-8.2)
--- NOTE | 2020-12-08 08:44 | NUR ---
REHAB PRESCREEN RECEIVED. AT THIS TIME PATIENT HAS STILL NOT RECEIVED HER THERAPY EVALUATIONS. I WILL WAIT FOR THESE TO BE COMPLETED BEFORE FINISHING THE REVIEW OF HER CHART. i WILL CONTINUE TO FOLLOW THIS PATIENT. THANK YOU FOR THE REFERRAL. NELSON CAREY RN CLINICAL LIAISON, INPATIENT REHAB.
--- NOTE | 2020-12-08 10:00 | NUR ---
ATE ABOUT 75% OF BREAKFAST. TOOK AM MEDS WITHOUT DIFFICULTY. DENIES NEEDS.
--- NOTE | 2020-12-08 11:30 | NUR ---
FSBS 207. GIVEN 4 UNITS REGULAR SUBQ PER SS AND 20 UNITS LANTUS SUBQ PER ORDERS. WILL MONITOR.
--- NOTE | 2020-12-08 12:49 | NUR ---
AT BEDSIDE. EATING LUNCH. DENIES NEEDS.
[2020-12-08 13:42] VITALS: BP 151/73
--- NOTE | 2020-12-08 14:47 | NUR ---
SMALL AMOUNT OF INCONTINENCE NOTED. LINENS CHANGED PER STAFF. I/O CATH PERFORMED USING STERILE TECHNIQUE. 700 CC CLEAR YELLOW URINE RETURNED. SPECIMEN SENT TO LAB.
[2020-12-08 16:35] VITALS: BP 111/65
--- NOTE | 2020-12-08 17:00 | NUR ---
FSBS 183. GIVEN 2 UNITS REGULAR SUBQ PER SS. SUPPER SERVED IN ROOM.
--- NOTE | 2020-12-08 18:39 | NUR ---
ATE MOST OF SUPPER. FAMILY AT BEDSIDE. NO CHANGES NOTED. DENIES NEEDS.
--- NOTE | 2020-12-09 06:31 | NUR ---
ASSUMED CARE OF PT AFTER REPORT. PT WAS AWAKE ON AND OFF SEVERAL TIMES T/O THE NIGHT ASKING WHERE HER FAMILY WAS, WHERE SHE WAS. REORIENTED WITH EACH INTERVAL. WAS ABLE TO RECALL THIS NURSES NAME BUT, NOTHING FURTHER FOR WHERE, TIME AND PLACE. ASSISTED WITH COMFORTING AND REORIENTING. PT DID GO BACK TO SLEEP AND IS SLEEPING AT THIS TIME. SCD'S HURT PT'S LEGS, SO PLEXI'S APPLIED AND PT HAS BEEN GOOD WITH SAME. CONTINUING TO APPLY NYSTOP PER ORDER TO AFFECTED AREAS.
[2020-12-09 06:58] LABS: ANION GAP 12.8 mmol/L (8-16); BILIRUBIN - TOTAL 0.67 mg/dL (0.2-1.3); CALCIUM 9.3 mg/dL (8.5-10.1); CARBON DIOXIDE 27.8 mmol/L (21.0-32.0); CREATININE - SERUM 1.5 mg/dL (0.6-1.3); MAGNESIUM - SERUM 2.7 mg/dL (1.8-2.4); POTASSIUM - SERUM 4.6 mmol/L (3.5-5.1); PROTEIN - SERUM 6.6 g/dL (6.4-8.2)
[2020-12-09 07:20] LABS: BASOPHILS 0.2 % (0-2); EOSINOPHILS 16.3 % (0-7); HEMATOCRIT 31.4 % (36.0-48.0); HEMOGLOBIN 9.5 g/dL (12-16); LYMPHOCYTE ABS# 0.88 10x3/uL (1.18-3.74); LYMPHOCYTES 6.1 % (15-50); MCH 24.4 pg (26.0-34.0); MCHC 30.3 g/dL (31.0-37.0); MCV 80.5 fL (80.0-100.0); MONOCYTES 8.8 % (2-11); NEUTROPHIL ABS# 9.68 10x3/uL (1.56-6.13); NEUTROPHILS 67.6 % (40-80); PLATELET COUNT 120 10x3/uL (130-400); RDW 18.4 % (11.5-14.5)
[2020-12-09 07:21] LABS: WBC 14.3 10x3/uL (4.8-10.8)
--- NOTE | 2020-12-09 09:37 | NUR ---
I HAVE DISCUSSED MRS NICK WITH THE PACKAGER HAND, CASE MANAGEMENT, AND MATERIALS PLANNER/PRODUCTION PLANNER. UNFORTUNATELY AT THIS TIME, IT IS FELT THAT INPATIENT REHAB WILL NOT BE ABLE TO MEET THE PATIENTS NEEDS, AND THEREFORE, WE WILL HAVE TO DECLINE ACCEPTANCE TO OUR UNIT. IT IS FELT THAT SHE WOULD DO BETTER IN THE SNF SETTING. THANK YOU FOR THIS REFERRAL. NELSON CAREY RN CLINICAL LIAISON, INPATIENT REHAB.
[2020-12-09 10:02] VITALS: BP 176/63
[2020-12-09 14:07] VITALS: BP 157/83
--- NOTE | 2020-12-09 15:36 | NUR ---
OT NOTE: PT COMPLETED BED MOB WITH MOD A X 2. PT COMPLETED EOB SITTING WITH CGA. PT COMPLETED SIT TO STAND WITH MOD A X2. PT COMPLETED BED TO CHAIR TSF WITH MOD A X2. PT REQUIRED TOTAL A WITH LB HYGIENE FOR BM. PT REQUIRED EXTENDED TIME FOR TASK COMPLETION. [phone] EDUARDO MAHONEY COTA
[2020-12-09 18:59] VITALS: BP 138/76
--- NOTE | 2020-12-09 18:59 | NUR ---
I have reviewed this patient and I concur with the Shift Assessment completed by the Licensed Practical Nurse today this shift.
--- NOTE | 2020-12-09 19:24 | NUR ---
ASSUMED CARE OF PT AFTER REPORT/ROUNDS. PT REMAINS CONFUSED TO TIME, PLACE AND SITUATION. IN BED RESTING AT THIS TIME WITH O2 VIA NC PER ORDER.
[2020-12-09 20:00] VITALS: BP 121/49
[2020-12-10 04:00] VITALS: BP 132/66
[2020-12-10 06:53] LABS: BASOPHILS 0.3 % (0-2); EOSINOPHILS 26.2 % (0-7); HEMATOCRIT 32.1 % (36.0-48.0); HEMOGLOBIN 9.5 g/dL (12-16); IMMATURE GRANULOCYTES 0.5 % (0-5); LYMPHOCYTE ABS# 0.66 10x3/uL (1.18-3.74); LYMPHOCYTES 5.9 % (15-50); MCH 24.1 pg (26.0-34.0); MCHC 29.6 g/dL (31.0-37.0); MCV 81.5 fL (80.0-100.0); MONOCYTES 4.3 % (2-11); NEUTROPHIL ABS# 7.04 10x3/uL (1.56-6.13); NEUTROPHILS 62.8 % (40-80); PLATELET COUNT 143 10x3/uL (130-400); RBC 3.94 10x6/uL (4.00-5.40); RDW 18.3 % (11.5-14.5); WBC 11.2 10x3/uL (4.8-10.8)
[2020-12-10 07:12] LABS: ALBUMIN 2.9 g/dL (3.4-5.0); ANION GAP 10.7 mmol/L (8-16); BILIRUBIN - TOTAL 0.7 mg/dL (0.2-1.3); CARBON DIOXIDE 28.6 mmol/L (21.0-32.0); CREATININE - SERUM 1.6 mg/dL (0.6-1.3); MAGNESIUM - SERUM 2.6 mg/dL (1.8-2.4); POTASSIUM - SERUM 4.3 mmol/L (3.5-5.1); PROTEIN - SERUM 6.9 g/dL (6.4-8.2)
[2020-12-10 08:50] VITALS: BP 162/70
[2020-12-10 13:23] VITALS: Ht 154.9 cm; Wt 128.4 kg
[2020-12-10 14:48] VITALS: BP 159/72
--- NOTE | 2020-12-10 15:05 | NUR ---
OT NOTE: PT COMPLETED BED MOB WITH MOD A. PT COMPLETED EOB SITTING WITH MIN A. PT COMPLETED SIT TO STAND WITH MIN-MOD A. PT REQUIRED TOTAL A WITH LB HYGIENE TASKS. PT COMPLETED PETER/DOFF SOCKS WITH TOTAL A. [phone] EDUARDO MAHONEY COTA
[2020-12-10 17:51] VITALS: BP 163/66
[2020-12-10 20:00] VITALS: BP 163/53
[2020-12-11] VITALS: BP 156/57
[2020-12-11 04:00] VITALS: BP 159/81
--- NOTE | 2020-12-11 06:18 | NUR ---
PT REMAINS CONFUSED WITH S/SX OF STML. REORIENTATION IS GRASPED AT TIME OF TEACHING BUT, PT SOON FORGETS. PT DOES TALK IN SLEEP WELL BUT, DID REST WELL LAST NIGHT. BG IN HIGH 80'S THIS AM WITH 240ML OF OJ GIVEN. PT REMAINS RESTING IN BED AT THIS TIME.
[2020-12-11 07:10] LABS: BASOPHILS 0.3 % (0-2); EOSINOPHILS 29.4 % (0-7); HEMATOCRIT 30.8 % (36.0-48.0); HEMOGLOBIN 9.4 g/dL (12-16); IMMATURE GRANULOCYTES 0.6 % (0-5); LYMPHOCYTE ABS# 0.84 10x3/uL (1.18-3.74); LYMPHOCYTES 7.5 % (15-50); MCH 24.7 pg (26.0-34.0); MCHC 30.5 g/dL (31.0-37.0); MCV 81.1 fL (80.0-100.0); NEUTROPHIL ABS# 6.04 10x3/uL (1.56-6.13); NEUTROPHILS 54.2 % (40-80); PLATELET COUNT 117 10x3/uL (130-400); RDW 18.4 % (11.5-14.5); WBC 11.1 10x3/uL (4.8-10.8)
[2020-12-11 07:34] LABS: ALBUMIN 2.8 g/dL (3.4-5.0); ANION GAP 10.9 mmol/L (8-16); BILIRUBIN - TOTAL 0.59 mg/dL (0.2-1.3); CALCIUM 9.2 mg/dL (8.5-10.1); CARBON DIOXIDE 26.5 mmol/L (21.0-32.0); CREATININE - SERUM 1.4 mg/dL (0.6-1.3); MAGNESIUM - SERUM 2.5 mg/dL (1.8-2.4); POTASSIUM - SERUM 4.4 mmol/L (3.5-5.1); PROTEIN - SERUM 6.5 g/dL (6.4-8.2)
--- NOTE | 2020-12-11 08:11 | NUR ---
PATIENT SEEMS TO BE MORE CONFUSED THIS MORNING, HAD O2 OFF AND COULD NOT FIND IT, REPLACED O2 ASKED RT FOR PRN BREATHING TREATMENTS. PATIENT ASKED TO GET OUT OF BED, WILL SPEAK TO PT TODAY ABOUT SITTING PATIENT UP IN CHAIR THROUGH LUNCH. PT SPOUSE WOULD LIKE FOR DR TO CALL HIM, ERIK NICK AT [phone]
[2020-12-11 10:11] VITALS: BP 158/61
--- NOTE | 2020-12-11 10:27 | NUR ---
PATIENT SITTING UP IN CHAIR AT BEDSIDE, ENCOURAGED TO USE INCENTIVE SPIROMETER, SPOUSE AT BEDSIDE, NO OTHER NEEDS AT THIS TIME. CONTINUE WITH PLAN OF CARE
--- NOTE | 2020-12-11 14:47 | NUR ---
OT NOTE: (AM) PT COMPLETED SITTING BALANCE WITH SBA. PT COMPLETED ORAL CARE WITH SETUP. PT COMPLETED HAIR GROOMING WITH SETUP. PT COMPLETED FACE AND HAND HYGIENE WITH SETUP. (PM) PT COMPLETED SIT TO STANDS WITH CGA. [id number] EDUARDO MAHONEY COTA
[2020-12-11 14:48] VITALS: BP 144/73
--- NOTE | 2020-12-11 16:34 | NUR ---
I have reviewed this patient and I concur with the Shift Assessment completed by the Licensed Practical Nurse today this shift.
[2020-12-11 17:11] VITALS: BP 141/65
--- NOTE | 2020-12-11 19:48 | NUR ---
RECEIVED BEDSIDE REPORT. PIV TO LEFT HAND PATENT AND S/L, NO REDNESS OR SWELLING. O2 SAT 97% ON 3.5L VIA NC. TELEMETRY IN PLACE 79, SR. PT ON BEDREST. EDUCATED PT ON CL AND NEEDS, VERBALIZED UNDERSTANDING. BED LOW, CL IN REACH.
[2020-12-11 20:00] VITALS: BP 132/62
[2020-12-12 04:00] VITALS: BP 149/60
[2020-12-12 06:44] LABS: ALBUMIN 2.9 g/dL (3.4-5.0); ANION GAP 14.4 mmol/L (8-16); BILIRUBIN - TOTAL 0.79 mg/dL (0.2-1.3); CALCIUM 8.8 mg/dL (8.5-10.1); CARBON DIOXIDE 24.3 mmol/L (21.0-32.0); CREATININE - SERUM 1.3 mg/dL (0.6-1.3); MAGNESIUM - SERUM 2.2 mg/dL (1.8-2.4); POTASSIUM - SERUM 4.7 mmol/L (3.5-5.1); PROTEIN - SERUM 6.8 g/dL (6.4-8.2)
[2020-12-12 07:28] LABS: BASOPHILS 0.2 % (0-2); EOSINOPHILS 1.5 % (0-7); HEMATOCRIT 32.8 % (36.0-48.0); HEMOGLOBIN 9.8 g/dL (12-16); IMMATURE GRANULOCYTES 0.7 % (0-5); LYMPHOCYTE ABS# 0.53 10x3/uL (1.18-3.74); LYMPHOCYTES 5.7 % (15-50); MCH 24.1 pg (26.0-34.0); MCHC 29.9 g/dL (31.0-37.0); MCV 80.8 fL (80.0-100.0); MONOCYTES 1.4 % (2-11); NEUTROPHIL ABS# 8.34 10x3/uL (1.56-6.13); NEUTROPHILS 90.5 % (40-80); PLATELET COUNT 137 10x3/uL (130-400); RBC 4.06 10x6/uL (4.00-5.40); RDW 18.2 % (11.5-14.5); WBC 9.2 10x3/uL (4.8-10.8)
--- NOTE | 2020-12-12 07:39 | MORECARE ---
CASE MANAGEMENT DISCHARGE SUMMARY PATIENT: TISH NICK UNIT: [id number] ADM DATE: 12/07/20 AGE: 85 : 36 SEX: F ROOM/BED: D.2214 AUTHOR: PHIL,DOC PHYSICIAN: REFERRING PHYSICIAN: MIMI TREVIÑO DO DATE OF SERVICE: 12/12/20 Case Management Discharge Planning Summary DCP REVIEW SUMMARY ANTICIPATED D/C DATE: EXPECTED LOS : CASE STATUS: DCP Initiated INITIAL REVIEW: 12/07/2020 INITIAL REVIEWER: Kiki Huddleston FINAL DISCHARGE DISPOSITION: : FINAL REVIEWER: FINAL REVIEW DATE: DCP Focus Questions & Answers QUESTION: ANSWER : PATIENT: TISH NICK ENCOUNTER: [id number] MEDICAL RECORD#: [id number] ADMISSION DATE: 12/07/2020 DISCHARGE DATE: ATTENDING MD: MIMI CARBAJAL : AGE: 85 MARITAL STATUS: M DC PLAN ID: [id number] FACILITY: [facility] PRINTED ON: 12/12/20 7:39 CT All edits/amendments must be made on the electronic document DICTATION DATE: 12/12/20738 MANAGER CONFIGURATION: DM 12/12/20738 RPT#: [id number] DC DATE: STATUS: ADM IN [facility] [address] [place] [address] END OF REPORT
--- NOTE | 2020-12-12 07:50 | MORECARE ---
CASE MANAGEMENT DISCHARGE SUMMARY PATIENT: TISH NICK UNIT: [id number] ADM DATE: 12/07/20 AGE: 85 : 36 SEX: F ROOM/BED: D.2214 AUTHOR: PHIL,DOC PHYSICIAN: REFERRING PHYSICIAN: MIMI TREVIÑO DO DATE OF SERVICE: 12/12/20 Case Management Discharge Planning Summary COMMENTS ENTERED DATE: 12/12/20 7:31 CT COMMENT TYPE: Discharge Planning REVIEWER: Kiki Huddleston late entry 12/11/20 @ 1700 CM met with patient & spouse to complete initial dc planning assessment. CM educated patient on the CM role and verbal consent given by patient to complete assessment. Patient lives at home with her where she is not independent with her ADL's. She was currently at [facility] and requested to be discharged before she should have left. When she arrived home she fell and her could not get her up. She knows that she needs rehab she would like to come back to our rehab, but our rehab will not accept her. I spoke with them about their options. They would like to try Inpatient rehab at [facility] if possible. We also spoke about a swing bed in [place] at [facility]. I am not sure if she would qualify for that, but will send a referral if she is not able to go to [facility]. Their 3rd choice would be [facility]. I go t a LEOBARDO for all 3 options. She is a patient of Dr Lala and uses the [facility] in [place]. She has a walker, wheelchair, BSC, hydrolic lift ( but said that he can not get a metal this under her to use it ) he asked if he could get a julian lift. She also has hand rails over toilet and in her shower. She uses home O2 and portable O2, but could not think of the company that she was set up with from rehab. She has a ramp in her home. During my assessment, the patient appeared to have an increase work to breathe. She was using accessory muscles to speak and sounded very wet. Her O2 was at 3.5-4L and she stated that she uses 2L at home. She c/o of being SOB & it was obvious she was. I called Asia Bradley APN and received a new order for a chest xray and pulm was consulted. Patient denied known discharge needs at this time. CM will continue to follow and will assist as needed with dc plans/needs. DCP REVIEW SUMMARY ANTICIPATED D/C DATE: EXPECTED LOS : CASE STATUS: DCP Initiated INITIAL REVIEW: 12/07/2020 INITIAL REVIEWER: Kiki Huddleston FINAL DISCHARGE DISPOSITION: : FINAL REVIEWER: FINAL REVIEW DATE: DCP Focus Questions & Answers QUESTION: ANSWER : PATIENT: TISH NICK ENCOUNTER: [id number] MEDICAL RECORD#: [id number] ADMISSION DATE: 12/07/2020 DISCHARGE DATE: ATTENDING MD: MIMI CARBAJAL : AGE: 85 MARITAL STATUS: M DC PLAN ID: [id number] FACILITY: [facility] PRINTED ON: 12/12/20 7:50 CT All edits/amendments must be made on the electronic document DICTATION DATE: 12/12/20748 VERTICAL PUNCH OPERATOR: ESTELA 12/12/20 0749 RPT#: [id number] DC DATE: STATUS: ADM IN [facility] [address] [place] [address] END OF REPORT
--- NOTE | 2020-12-12 08:01 | NUR ---
PATIENT IS AWAKE AND PLEASANTLY CONFUSED. O2 AT 3.5L, WHEEZING HEARD FROM DOORWAY, ASKED RT TO SEE PATIENT THIS MORNING. IV IN LEFT HAND ABX RUNNING. NO NEEDS VOICED. CONTINUE WITH PLAN OF CARE
[2020-12-12 08:34] VITALS: BP 171/70
--- NOTE | 2020-12-12 10:58 | NUR ---
I have reviewed this patient and I concur with the Shift Assessment completed by the Licensed Practical Nurse today this shift.
--- NOTE | 2020-12-12 12:46 | NUR ---
OT NOTE: PRACTICED BED MOB INCLUDING SUPINE TO SIT WITH MOD ASSIST; ONCE PT WAS POSITIONED TO EOB WITH ASSIST, SHE WAS ABLE TO MAINTAIN STATIC SITTING WITHOUT ASSIST. PT VERY SOB AND REQUIRED SEVERAL MIN TO CATCH HER BREATH BEFORE ATTEMPTING NEXT TASK. ATTEMPTED DONNING SOCKS WHILE ON EOB, HOWEVER, PT UNABLE TO PERFORM... STATED THAT SHE COULD NOT BREATH WHEN LEANING FORWARD.. PT ALSO REQUIRED MAX ASSIST FOR DONNING AND DOFFING PULL UPS. PT INCONT OF BLADDER AND REQUIERS MAX ASSIST FOR HYGIENE AND CLOTHING MGMT. PERFORMED SEVERAL SIT TO STAND EXS WITH WALKER AND MOD ASSIST. ONCE IN STANDING, PT ABLE TO TAKE A FEW STEPS FORWARD ADN BACKWARDS.. BIGGEST PROBLEM IS HER BREATHING.. VERY SOB WITH MINIMAL EXERTION. PT ABLE TO PERFORM SIMPLE GROOMING AND UE DRESSING, BUT REQUIRES EXT ASSIST WITH TOILETING AND LOWER BODY DRESSING/BATHING. RECOMMEND CONT REHAB PRIOR TO DC HOME. MARTIN PAUL, OTR/L 2028
[2020-12-12 12:49] VITALS: BP 157/68
--- NOTE | 2020-12-12 13:33 | NUR ---
PIV TO LEFT HAND LEAKING. PIV REMOVED WITH CATHETER TIP INTACT. DRESSING APPLIED. PIV RESITE TO RIGHT SHOULDER X 1 ATTEMPT WITH 22G. PT TOLERATED WELL. FALL PRECAUTIONS IN PLACE. BED IS IN THE LOWEST POSITION. CALL LIGHT AND BEDSIDE TABLE ARE WITHIN REACH. SIDE RAILS X 2. PT DENIES FURTHER NEEDS. WILL NOTIFY SHIFT NURSE OF PIV PLACEMENT.
--- NOTE | 2020-12-12 14:53 | MORECARE ---
CASE MANAGEMENT DISCHARGE SUMMARY PATIENT: TISH NICK UNIT: [id number] ADM DATE: 12/07/20 AGE: 85 : 36 SEX: F ROOM/BED: D.2214 AUTHOR: PHIL,DOC PHYSICIAN: REFERRING PHYSICIAN: MIMI TREVIÑO DO DATE OF SERVICE: 12/12/20 Case Management Discharge Planning Summary COMMENTS ENTERED DATE: 12/12/20 14:47 CT COMMENT TYPE: Discharge Planning REVIEWER: Kiki Huddleston Per patient's nurse they would like to go to the swing bed in [place] if possible I called Magi Valiente RN @ [phone], I did not get an answer her mailbox was full so I could not leave a message I called Alise Douglas at [phone] and I did not get an answer. I will try again at a later time Jasmyne rdz [facility] came by to see the patient. If the patient is agreeable they will accept the patient, but at this time they would like [place] as their first choice CM to follow and assist as needed ENTERED DATE: 12/12/20 7:31 CT COMMENT TYPE: Discharge Planning REVIEWER: Kiki Huddleston late entry 12/11/20 @ 1700 CM met with patient & spouse to complete initial dc planning assessment. CM educated patient on the CM role and verbal consent given by patient to complete assessment. Patient lives at home with her where she is not independent with her ADL's. She was currently at [facility] and requested to be discharged before she should have left. When she arrived home she fell and her could not get her up. She knows that she needs rehab she would like to come back to our rehab, but our rehab will not accept her. I spoke with them about their options. They would like to try Inpatient rehab at [facility] if possible. We also spoke about a swing bed in [place] at [facility]. I am not sure if she would qualify for that, but will send a referral if she is not able to go to [facility]. Their 3rd choice would be [facility]. I go t a LEOBARDO for all 3 options. She is a patient of Dr Lala and uses the [facility] in [place]. She has a walker, wheelchair, BSC, hydrolic lift ( but said that he can not get a metal this under her to use it ) he asked if he could get a julian lift. She also has hand rails over toilet and in her shower. She uses home O2 and portable O2, but could not think of the company that she was set up with from rehab. She has a ramp in her home. During my assessment, the patient appeared to have an increase work to breathe. She was using accessory muscles to speak and sounded very wet. Her O2 was at 3.5-4L and she stated that she uses 2L at home. She c/o of being SOB & it was obvious she was. I called Asia Bradley APN and received a new order for a chest xray and pulm was consulted. Patient denied known discharge needs at this time. CM will continue to follow and will assist as needed with dc plans/needs. DCP REVIEW SUMMARY ANTICIPATED D/C DATE: EXPECTED LOS : CASE STATUS: DCP Initiated INITIAL REVIEW: 12/07/2020 INITIAL REVIEWER: Kiki Huddleston FINAL DISCHARGE DISPOSITION: : FINAL REVIEWER: FINAL REVIEW DATE: DCP Focus Questions & Answers QUESTION: ANSWER : PATIENT: TISH NICK ENCOUNTER: [id number] MEDICAL RECORD#: [id number] ADMISSION DATE: 12/07/2020 DISCHARGE DATE: ATTENDING MD: MIMI CARBAJAL : AGE: 85 MARITAL STATUS: M DC PLAN ID: [id number] FACILITY: [facility] PRINTED ON: 12/12/20 14:52 CT All edits/amendments must be made on the electronic document DICTATION DATE: 12/12/201451 PREPARATION ROOM MANAGER: ESTELA 12/12/201451 RPT#: [id number] DC DATE: STATUS: ADM IN [facility] [address] [place] [address] END OF REPORT
[2020-12-12 16:40] VITALS: BP 169/73
[2020-12-12 20:00] VITALS: BP 129/43; BP 165/63
[2020-12-13] VITALS: BP 167/62
--- NOTE | 2020-12-13 03:27 | NUR ---
PT DRY ICE MAKER LIGHT SHE ASKED TO CHECK IF SHE HAS URINE UNDER HER. RED AREA NOTED ALL IN HER COCCYX AREA/ GROIN NYSTATIN POWDER APPLIED. WILL CONT TO MONITOR.
[2020-12-13 04:00] VITALS: BP 175/81
--- NOTE | 2020-12-13 04:00 | NUR ---
I have reviewed this patient and I concur with the Shift Assessment completed by the Licensed Practical Nurse today this shift.
[2020-12-13 07:00] LABS: BASOPHILS 0.3 % (0-2); EOSINOPHILS 0.1 % (0-7); HEMATOCRIT 32.9 % (36.0-48.0); HEMOGLOBIN 9.8 g/dL (12-16); IMMATURE GRANULOCYTES 0.4 % (0-5); LYMPHOCYTE ABS# 0.46 10x3/uL (1.18-3.74); LYMPHOCYTES 6.3 % (15-50); MCHC 29.8 g/dL (31.0-37.0); MCV 80.6 fL (80.0-100.0); MEAN PLATELET VOLUME 12.2 fL (7.4-10.4); MONOCYTES 6.3 % (2-11); NEUTROPHIL ABS# 6.27 10x3/uL (1.56-6.13); NEUTROPHILS 86.6 % (40-80); RBC 4.08 10x6/uL (4.00-5.40); RDW 18.2 % (11.5-14.5); WBC 7.3 10x3/uL (4.8-10.8)
[2020-12-13 07:13] LABS: PLATELET COUNT 175 10x3/uL (130-400)
[2020-12-13 07:29] LABS: ALBUMIN 2.9 g/dL (3.4-5.0); ANION GAP 14.3 mmol/L (8-16); BILIRUBIN - TOTAL 0.81 mg/dL (0.2-1.3); CALCIUM 9.1 mg/dL (8.5-10.1); CARBON DIOXIDE 24.4 mmol/L (21.0-32.0); CREATININE - SERUM 1.6 mg/dL (0.6-1.3); POTASSIUM - SERUM 4.7 mmol/L (3.5-5.1); PROTEIN - SERUM 6.9 g/dL (6.4-8.2)
[2020-12-13 08:52] VITALS: BP 188/88
--- NOTE | 2020-12-13 09:54 | NUR ---
ALERT AND ORIENTED. ASSESSMENT COMPLETE. DENIES NEEDS. BED LOW. CALL LAL AND PERSONAL ITEMS IN REACH. WILL CONTINUE TO MONITOR.
--- NOTE | 2020-12-13 11:46 | NUR ---
OT NOTE: PT DOING BETTER TODAY. BED MOB WITH MOD ASSIST FOR EOB SITTING. ABLE TO PERFORM UE/LE EXS WHILE IN SEATED POSITION; MAX ASSIST TO PETER SOCKS AND PULLUPS; MAX ASSIST WITH PERINEAL CARE; MIN ASSIST TO PETER GOWN; SET UP TO COMB HAIR AND WASH FACE. SIT TO STAND ACT WITH WALKER AND MOD ASSIST X 3 TRIALS. TRANSFER FROM CHAIR TO BED TO CHAIR WITH WALKER AND MIN ASSIST.. INCREASED ANXIETY WITH INCREASED ACTIVITY DUE TO SOB. MARTIN PAUL, OTR/L 205-9
[2020-12-13 12:29] VITALS: BP 165/71
--- NOTE | 2020-12-13 12:59 | NUR ---
Nutrition Follow-up: Diet: Diabetic PO intake: 75% Wt: 283# (12/10/20) Meds noted: solumedrol, abx, probiotics, lantus, SSI Labs noted: BUN 36(H), Cr 1.6(H), GFR 32(L), Glu 161(H), POC Glu 189(H) Recommend continue current diet. Will continue to honor food preferences within diet restrictions. RD will re-assess 12/17/20.
--- NOTE | 2020-12-13 15:49 | NUR ---
OT NOTE: PT COMPLETED BED MOB TASKS WITH MIN A. PT COMPLETED SUPINE TO SIT WITH MOD-MAX A. PT COMPLETED SIT TO STAND WITH MIN-MOD A. PT REQUIRED MAX A FOR THREAD BRIEFS. PT REQUIRED MOD A FOR PULLING BRIEFS UP. PT REQUIRED TOTAL A FOR LB HYGIENE. LATER IN DAY CHECKED BACK WITH PT. PT NOT READY TO RETURN TO BED. NURSING STATED THEY WOULD GET PT BACK TO BED. [id number] THANK YOU,MATEO FERERIRA
--- NOTE | 2020-12-13 16:24 | NUR ---
IV INFILTRATED TO RIGHT SHOULDER. REMOVED FROM TIP INTACT. RESITED TO LEFT HAND AFTER THREE ATTEMPTS BY 2 NURSES WITH 22 GAUGE.
--- NOTE | 2020-12-13 16:32 | NUR ---
CLARIFIED WITH MEG, PHARMACIST, THAT PATIENT WAS SUPPOSED TO GET VANC DOSE SINCE TROUGH WAS 26. STATES TROUGH WAS PERFORMED TO EARLY AND WAS NOT ACCURATE. STATES VANC OK TO GIVE NOW AND TROUGH REORDERED FOR TOMORROW.
[2020-12-13 17:12] VITALS: BP 154/85
--- NOTE | 2020-12-13 18:23 | NUR ---
PATIENT ASSISTED BACK TO BED X 2 MAX ASSIST. BRIEF REMOVED D/T URINE SOAKED. PULLED UP AND ADJUSTED IN BED. DENIES FURTHER NEEDS. BED ALARM ON. CALL LAL AND PERSONAL ITEMS IN REACH. WILL CONTINUE TO MONITOR.
--- NOTE | 2020-12-14 01:58 | NUR ---
I have reviewed this patient and I concur with the Shift Assessment completed by the Licensed Practical Nurse today this shift.
--- NOTE | 2020-12-14 04:49 | NUR ---
PT IN BED WITH EYES OPEN, SHE HAS BEEN RESTLESS ALL NIGHT CONSTANTLY ASKING WHERE WAS SHE LOCATED AND WHAT WAS GOING ON WITH HER. PT IS INCONTINENT OF URINE AND STOOL BUT MINIMUN URINE COLLECTED. WILL CONT TO MONITOR.
[2020-12-14 05:48] VITALS: BP 168/72
[2020-12-14 06:04] VITALS: BP 150/62
[2020-12-14 06:45] LABS: BASOPHILS 0.2 % (0-2); EOSINOPHILS 0.1 % (0-7); HEMATOCRIT 32.3 % (36.0-48.0); HEMOGLOBIN 9.7 g/dL (12-16); IMMATURE GRANULOCYTES 0.5 % (0-5); LYMPHOCYTE ABS# 0.48 10x3/uL (1.18-3.74); LYMPHOCYTES 5.4 % (15-50); MCH 24.3 pg (26.0-34.0); MEAN PLATELET VOLUME 12.3 fL (7.4-10.4); MONOCYTES 8.7 % (2-11); NEUTROPHIL ABS# 7.55 10x3/uL (1.56-6.13); NEUTROPHILS 85.1 % (40-80); PLATELET COUNT 202 10x3/uL (130-400); RBC 3.99 10x6/uL (4.00-5.40); RDW 18.4 % (11.5-14.5); WBC 8.9 10x3/uL (4.8-10.8)
[2020-12-14 07:24] LABS: ANION GAP 14.1 mmol/L (8-16); BILIRUBIN - TOTAL 0.68 mg/dL (0.2-1.3); CALCIUM 8.6 mg/dL (8.5-10.1); CARBON DIOXIDE 24.7 mmol/L (21.0-32.0); CREATININE - SERUM 1.6 mg/dL (0.6-1.3); POTASSIUM - SERUM 4.8 mmol/L (3.5-5.1); PROTEIN - SERUM 6.8 g/dL (6.4-8.2)
[2020-12-14 08:27] VITALS: BP 180/75
[2020-12-14 12:43] VITALS: BP 174/82
--- NOTE | 2020-12-14 13:54 | NUR ---
PT LAYING IN BED, PT IS READJUSTED EVERY 2 HOURS FOR COCCYX PAIN, NO SIGNS OF DISTRESS, NO NEEDS AT THIS TIME
[2020-12-14 17:23] VITALS: BP 182/89
--- NOTE | 2020-12-14 19:40 | NUR ---
PATIENT RESTING IN BED WITH NO S/S OF DISTRESS AND DENIES NEEDS AT THIS TIME. BED IN LOWEST POSITION AND CALL LIGHT IN REACH. ENCOURAGED PATIENT TO CALL WITH NEEDS.
[2020-12-14 20:00] VITALS: BP 183/86
--- NOTE | 2020-12-14 21:52 | NUR ---
PATIENT REQUESTED BACK JOINER BE CONTACTED FOR TUMS
--- NOTE | 2020-12-14 22:22 | NUR ---
CONTRERAS RN RESITED PATIENT'S IV TO THE RIGHT AC WITH A 20G. I ADMINISTERED MEDS PER ORDERS. RETMED ZOSYN. PATIENT DENIES OTHER NEEDS AT THIS TIME. BED IN LOWEST POSITION AND CALL LIGHT IN REACH. ENCOURAGED PATIENT TO CALL WITH NEEDS.
[2020-12-15 03:06] LABS: IMMUNOGLOBULIN E 168 IU/mL (6-495)
--- NOTE | 2020-12-15 03:42 | NUR ---
RELIGIOUS EDUCATION COORDINATOR AND I ASSISTED PATIENT TO THE BSC PER HER REQUEST. PATIENT HAD A BM. ASSISTED PATIENT BACK TO BED. NEW PUREWICK IN PLACE. BED IN LOWEST POSITION AND CALL LIGHT IN REACH. ENCOURAGED PATIENT TO CALL WITH NEEDS.
[2020-12-15 05:40] LABS: BASOPHILS 0.2 % (0-2); EOSINOPHILS 0.1 % (0-7); HEMATOCRIT 33.7 % (36.0-48.0); HEMOGLOBIN 10.1 g/dL (12-16); IMMATURE GRANULOCYTES 0.5 % (0-5); LYMPHOCYTE ABS# 0.44 10x3/uL (1.18-3.74); MCH 24.6 pg (26.0-34.0); MEAN PLATELET VOLUME 11.9 fL (7.4-10.4); NEUTROPHIL ABS# 9.84 10x3/uL (1.56-6.13); NEUTROPHILS 89.2 % (40-80); PLATELET COUNT 168 10x3/uL (130-400); RBC 4.11 10x6/uL (4.00-5.40); RDW 18.8 % (11.5-14.5)
[2020-12-15 05:59] LABS: ANION GAP 15.5 mmol/L (8-16); BILIRUBIN - TOTAL 0.59 mg/dL (0.2-1.3); CALCIUM 9.3 mg/dL (8.5-10.1); CARBON DIOXIDE 22.7 mmol/L (21.0-32.0); CREATININE - SERUM 1.6 mg/dL (0.6-1.3); POTASSIUM - SERUM 5.2 mmol/L (3.5-5.1); PROTEIN - SERUM 6.9 g/dL (6.4-8.2); VANCOMYCIN - RANDOM 20.7 ug/mL (10.0-20.0)
[2020-12-15 07:00] VITALS: BP 194/88
--- NOTE | 2020-12-15 12:09 | MORECARE ---
CASE MANAGEMENT DISCHARGE SUMMARY PATIENT: TISH NICK UNIT: [id number] ADM DATE: 12/07/20 AGE: 85 : 36 SEX: F ROOM/BED: D.2214 AUTHOR: PHIL,DOC PHYSICIAN: REFERRING PHYSICIAN: MIMI TREVIÑO DO DATE OF SERVICE: 12/15/20 Case Management Discharge Planning Summary COMMENTS ENTERED DATE: 12/15/20 11:58 CT COMMENT TYPE: Discharge Planning REVIEWER: Serenity Francis CM spoke with Ana [phone] with [facility] and faxed updated clinicials. f [phone] She is planning on finishing patients workup today so patient can discharge on Wednesday. CM will continue to follow and assist as needed with discharge planning needs. ENTERED DATE: 12/12/20 14:47 CT COMMENT TYPE: Discharge Planning REVIEWER: Kiki Huddleston Per patient's nurse they would like to go to the swing bed in [place] if possible I called Magi Valiente RN @ [phone], I did not get an answer her mailbox was full so I could not leave a message I called Alise Douglas at [phone] and I did not get an answer. I will try again at a later time Jasmyne with [facility] came by to see the patient. If the patient is agreeable they will accept the patient, but at this time they would like [place] as their first choice CM to follow and assist as needed ENTERED DATE: 12/12/20 7:31 CT COMMENT TYPE: Discharge Planning REVIEWER: Kiki Huddleston late entry 12/11/20 @ 1700 CM met with patient & spouse to complete initial dc planning assessment. CM educated patient on the CM role and verbal consent given by patient to complete assessment. Patient lives at home with her where she is not independent with her ADL's. She was currently at [facility] and requested to be discharged before she should have left. When she arrived home she fell and her could not get her up. She knows that she needs rehab she would like to come back to our rehab, but our rehab will not accept her. I spoke with them about their options. They would like to try Inpatient rehab at [facility] if possible. We also spoke about a swing bed in [place] at [facility]. I am not sure if she would qualify for that, but will send a referral if she is not able to go to [facility]. Their 3rd choice would be [facility]. I go t a LEOBARDO for all 3 options. She is a patient of Dr Lala and uses the [facility] in [place]. She has a walker, wheelchair, BSC, hydrolic lift ( but said that he can not get a metal this under her to use it ) he asked if he could get a julian lift. She also has hand rails over toilet and in her shower. She uses home O2 and portable O2, but could not think of the company that she was set up with from rehab. She has a ramp in her home. During my assessment, the patient appeared to have an increase work to breathe. She was using accessory muscles to speak and sounded very wet. Her O2 was at 3.5-4L and she stated that she uses 2L at home. She c/o of being SOB & it was obvious she was. I called Asia Bradley APN and received a new order for a chest xray and pulm was consulted. Patient denied known discharge needs at this time. CM will continue to follow and will assist as needed with dc plans/needs. DCP REVIEW SUMMARY ANTICIPATED D/C DATE: EXPECTED LOS : CASE STATUS: DCP Initiated INITIAL REVIEW: 12/07/2020 INITIAL REVIEWER: Kiki Huddleston FINAL DISCHARGE DISPOSITION: : FINAL REVIEWER: FINAL REVIEW DATE: DCP Focus Questions & Answers QUESTION: ANSWER : PATIENT: TISH NICK ENCOUNTER: [id number] MEDICAL RECORD#: [id number] ADMISSION DATE: 12/07/2020 DISCHARGE DATE: ATTENDING MD: MIMI CARBAJAL : AGE: 85 MARITAL STATUS: M DC PLAN ID: [id number] FACILITY: [facility] PRINTED ON: 12/15/20 12:09 CT All edits/amendments must be made on the electronic document DICTATION DATE: 12/15/201207 RUBY ON RAILS WEB DEVELOPER: ESTELA 12/15/201207 RPT#: [id number] DC DATE: STATUS: ADM IN [facility] [address] [place] [address] END OF REPORT
--- NOTE | 2020-12-15 14:23 | NUR ---
PATIENT BACK IN BED, SPOUSE AT BEDSIDE, SHE IS PLEASANTLY CONFUSED THIS MORNING, IV RESITED TO RIGHT BREAST. NO NEEDS VOICED, CONTINUE WITH PLAN OF CARE
--- NOTE | 2020-12-15 15:18 | NUR ---
I have reviewed this patient and I concur with the Shift Assessment completed by the Licensed Practical Nurse today this shift.
[2020-12-15 15:29] VITALS: BP 160/79
[2020-12-15 20:42] VITALS: BP 150/86
[2020-12-16] VITALS: BP 186/88
--- NOTE | 2020-12-16 02:53 | NUR ---
PATIENT SLEEPING. SPO2 98% ON 2 LPM NC, HR 73 RR 20 BS's CLEAR AND DECREASED. NO DISTRESS NOTED AT THIS TIME. PATIENT APPEARS TO BE COMFORTABLE AND SLEEPING.
--- NOTE | 2020-12-16 03:40 | NUR ---
PATIENT HAS BEEN RESTING IN BED WITH HER EYES CLOSED, SHE HAS DENIED PAIN, SHE DOES TALK IN HER SLEEP. SHE'S CURRENTLY RESTING IN BED WITH HER EYES CLOSED.
[2020-12-16 07:32] LABS: BASOPHILS 0.2 % (0-2); EOSINOPHILS 2.4 % (0-7); HEMATOCRIT 32.4 % (36.0-48.0); HEMOGLOBIN 9.9 g/dL (12-16); IMMATURE GRANULOCYTES 0.5 % (0-5); LYMPHOCYTE ABS# 0.77 10x3/uL (1.18-3.74); MCH 24.9 pg (26.0-34.0); MCHC 30.6 g/dL (31.0-37.0); MCV 81.4 fL (80.0-100.0); MONOCYTES 10.5 % (2-11); NEUTROPHIL ABS# 12.66 10x3/uL (1.56-6.13); NEUTROPHILS 81.4 % (40-80); PLATELET COUNT 146 10x3/uL (130-400); RBC 3.98 10x6/uL (4.00-5.40); WBC 15.6 10x3/uL (4.8-10.8)
[2020-12-16 08:13] LABS: ALBUMIN 3.1 g/dL (3.4-5.0); ANION GAP 11.8 mmol/L (8-16); BILIRUBIN - TOTAL 0.87 mg/dL (0.2-1.3); CALCIUM 10.1 mg/dL (8.5-10.1); CARBON DIOXIDE 27.2 mmol/L (21.0-32.0); CREATININE - SERUM 1.5 mg/dL (0.6-1.3); PROTEIN - SERUM 6.5 g/dL (6.4-8.2); VANCOMYCIN - RANDOM 16.4 ug/mL (10.0-20.0)
[2020-12-16 10:18] VITALS: BP 183/83
--- NOTE | 2020-12-16 12:25 | NUR ---
PATIENT SITTING UP IN CHAIR SPOUSE AT BEDSIDE, PATIENT HAS INQUIRED ON WHEN DC WILL BE. NO NEWS AT THIS TIME. CONTINUE WITH PLAN OF CARE
[2020-12-16 14:00] VITALS: BP 132/80
--- NOTE | 2020-12-16 14:59 | NUR ---
I have reviewed this patient and I concur with the Shift Assessment completed by the Licensed Practical Nurse today this shift.
--- NOTE | 2020-12-16 15:20 | NUR ---
PATIENT BACK IN BED, ASLEEP, EVEN RISE AND FALL OF CHEST, NO SIGNS OF DISTRESS, CL IN REACH CONTINUE WITH PLAN OF CARE
--- NOTE | 2020-12-16 16:13 | NUR ---
OT NOTE: PT REPORTED NOT FEELING WELL, BUT ALWAYS AGREEABLE TO PARTICIPATE. CONT WITH CONFUSION...ORIENTED TO SELF..FREQ CUES TO WHERE SHE IS..SIT TO STAND FROM CHAIR LEVEL WITH MOD ASSIST..ONCE IN STANDING SHE REQUIRES ONLY MIN ASSIST..MIN ASSIST WITH TRANSFERS WITH USE OF WALKER.. PT SOB WITH MINIMAL EXERTION... REQIRED MOD ASSIST TO PETER GOWN (MOSTLY DUE TO IV LINES AND 02 TUBING)..MAX ASSIST TO PETER SOCKS... SET UP WITH FEEDING AND SIMPLE GROOMING TASKS. MARTIN PAUL, OTR/L
--- NOTE | 2020-12-16 16:44 | NUR ---
OT NOTE: PT COMPLETED BED MOB TASKS WITH MIN A. PT COMPLETED SITTING AT EOB WITH SBA-CGA. PT REQUIRED MOD A FOR SIT TO SUPINE. PT COMPLETED ORAL CARE WITH SETUP USING TOOTHETTE. PT COMPLETED FACE HYGIENE WITH SETUP. [phone] THANK YOU,MATEO FERREIRA
[2020-12-16 17:54] VITALS: BP 171/82
[2020-12-16 20:00] VITALS: BP 177/85
[2020-12-17] VITALS: BP 201/78
[2020-12-17 00:20] VITALS: BP 165/75
--- NOTE | 2020-12-17 03:42 | NUR ---
PATIENTS IV IN HER BREAST INFILTRATED AND CAUSED HER BREAST TO SWELL, IV REMOVED, WILL NOTIFY VASCULAR ACCESS TO SEE IF THEY CAN GET AN IV.
[2020-12-17 04:00] VITALS: BP 196/79
[2020-12-17 06:30] LABS: ANION GAP 12.3 mmol/L (8-16); BILIRUBIN - TOTAL 0.81 mg/dL (0.2-1.3); CALCIUM 10.2 mg/dL (8.5-10.1); CARBON DIOXIDE 26.4 mmol/L (21.0-32.0); CREATININE - SERUM 1.4 mg/dL (0.6-1.3); POTASSIUM - SERUM 4.7 mmol/L (3.5-5.1); PROTEIN - SERUM 6.4 g/dL (6.4-8.2); VANCOMYCIN - RANDOM 12.8 ug/mL (10.0-20.0)
--- NOTE | 2020-12-17 07:10 | NUR ---
THE ASSEMBLY DEPARTMENT SUPERVISOR NOTIFIED ME OF AN ELEVATED BLOOD PRESSURE, EACH TIME I DID RECHECK IT. I NOTIFIED ALEXANDER SANDERS AND SHE ORDERED IV MEDICATION, I EXPLAINED THE PATIENT HAD NO IV ACCESS, AND SHE SAID WE NEEDED TO GET ONE OR SHE NEEDED TO HAVE A PICC PUT IN. I HAD ICU COME TRY WITHOUT SUCCESS. DAY SHIFT NURSE GOT AN IV FOR US.
[2020-12-17 07:36] LABS: BASOPHILS 0.1 % (0-2); EOSINOPHILS 0.2 % (0-7); HEMATOCRIT 34.1 % (36.0-48.0); HEMOGLOBIN 10.6 g/dL (12-16); IMMATURE GRANULOCYTES 0.4 % (0-5); LYMPHOCYTE ABS# 0.63 10x3/uL (1.18-3.74); LYMPHOCYTES 3.5 % (15-50); MCH 24.9 pg (26.0-34.0); MCHC 31.1 g/dL (31.0-37.0); MEAN PLATELET VOLUME 11.6 fL (7.4-10.4); NEUTROPHIL ABS# 16.08 10x3/uL (1.56-6.13); NEUTROPHILS 89.8 % (40-80); RBC 4.26 10x6/uL (4.00-5.40); RDW 18.9 % (11.5-14.5); WBC 17.9 10x3/uL (4.8-10.8)
[2020-12-17 07:46] LABS: PLATELET COUNT 222 10x3/uL (130-400)
[2020-12-17 10:02] VITALS: BP 187/74
--- NOTE | 2020-12-17 10:54 | NUR ---
PATIENT STATES SHE IS NOT FEELING WELL TODAY, SHE DECLINED TO WALK WITH PT, THEY STOOD HER UP AND SHE BECAME NAUSEOUS, LAID HER BACK DOWN, PATIENT NOW HAS IV IN RT SHOULDER ABX RUNNING, WILL COLLECT UA. CONTINUE WITH PLAN OF CARE
[2020-12-17 13:16] LABS: BILIRUBIN NEGATIVE (NEGATIVE); KETONE NEGATIVE (NEGATIVE); NITRITE NEGATIVE (NEGATIVE); UROBILINOGEN NORMAL mg/dL (< 2)
[2020-12-17 13:17] LABS: BACTERIA FEW HPF (NONE SEEN); SQUAMOUS EPITHELIAL 0-5 HPF (0-4)
--- NOTE | 2020-12-17 14:39 | NUR ---
I have reviewed this patient and I concur with the Shift Assessment completed by the Licensed Practical Nurse today this shift.
--- NOTE | 2020-12-17 15:53 | NUR ---
OT NOTE: PT COMPLETED SUPINE TO SIT WITH MAX A X2.PT REQUIRED EXTENSIVE ASSIST WITH LES. PT REQUIRED MOD A FOR STATIC SITTING TO DECREASE LATERAL LEAN. PT BECAME SICK. PT REQUIRED TOTAL A FOR SIT TO SUPINE. PT REQUIRED TOTAL A FOR POSITIONING IN BED. PT NOT FEELING WELL. NURSING AWARE. PT REQUIRED SETUP FOR FACE HYGIENE. [phone] THANK YOU,MATEO FERREIRA
--- NOTE | 2020-12-17 17:45 | NUR ---
CALLED FOR MIDLINE PLACEMENT. ON ARRIVAL, MIDLINE DISCUSSED WITH PATIENT AND VERBAL CONSENT OBTAINED. USING SITE RITE ULTRASOUND, LEFT UPPER ARM VEIN LOCATED. STERILE PREP, DRAPE AND 1% XYLOCAINE TO AREA. VEIN ACCESSED, UNABLE TO INSERT WIRE. ATTEMPTED MULTIPLE TIMES, UNSUCCESSFUL. 20 GAUGE CATHETER INSERTED IN RIGHT LOWER FOREARM FOR PERIPHERAL IV
[2020-12-17 20:00] VITALS: BP 157/71
--- NOTE | 2020-12-17 20:00 | NUR ---
PT SITTING UP IN BED WITHOUT DISTRESS, ORIENTED TO SELF ONLY. IV RIGHT AC SL. PUREWICK IN PLACE. DENIES OTHER NEEDS, CL IN REACH. BED ALARM ON
--- NOTE | 2020-12-17 21:30 | NUR ---
PT HAD SMALL BM AT THIS TIME. LINENS CHANGED, ANAMARIA CARE PROVIDED, PUREWICK CHANGED. APPLIED PASTE TO BOTTOM. PUT NYSTATIN POWDER TO ABD/BREAST FOLDS. GAVE HS MEDS WITHOUT DIFFICULTY. DENIES OTHER NEEDS. CL IN REACH, BED ALARM ON
[2020-12-18] VITALS: BP 184/78
[2020-12-18 04:00] VITALS: BP 165/80
[2020-12-18 06:06] LABS: BASOPHILS 0.3 % (0-2); EOSINOPHILS 1.5 % (0-7); HEMATOCRIT 32.5 % (36.0-48.0); LYMPHOCYTES 3.3 % (15-50); MCH 24.4 pg (26.0-34.0); MCHC 30.8 g/dL (31.0-37.0); MCV 79.3 fL (80.0-100.0); MEAN PLATELET VOLUME 9.7 fL (7.4-10.4); MONOCYTES 5.8 % (2-11); NEUTROPHILS 89.1 % (40-80); PLATELET COUNT 214 10x3/uL (130-400); RDW 19.6 % (11.5-14.5); WBC 13.6 10x3/uL (4.8-10.8)
[2020-12-18 06:24] LABS: ALBUMIN 2.9 g/dL (3.4-5.0); ANION GAP 13.7 mmol/L (8-16); BILIRUBIN - TOTAL 0.75 mg/dL (0.2-1.3); CALCIUM 9.5 mg/dL (8.5-10.1); CREATININE - SERUM 1.4 mg/dL (0.6-1.3); POTASSIUM - SERUM 4.7 mmol/L (3.5-5.1); VANCOMYCIN - RANDOM 17.7 ug/mL (10.0-20.0)
--- NOTE | 2020-12-18 08:01 | NUR ---
ALERT AND ORIENTED TO SELF. ASSESSMENT COMPLETE. BED LOW. BED ALARM ON. CALL LAL AND PERSONAL ITEMS IN REACH. WILL CONTINUE TO MONITOR.
[2020-12-18 08:39] VITALS: BP 198/83
--- NOTE | 2020-12-18 08:41 | NUR ---
IV LEAKING WITH FLUSH AFTER GIVING PRN HYDRALAZINE. WILL REMOVE.
--- NOTE | 2020-12-18 09:11 | NUR ---
SPOKE WITH JOHAN AGUILLON TO SEE IF PATIENT STILL NEEDS MIDLINE OR CHANGING TO PO ABX BEFORE DC. STATES WILL TALK TO MD. HOLD OFF ON MIDLINE FOR NOW.
--- NOTE | 2020-12-18 09:56 | NUR ---
SKIN TEAR NOTED TO PATIENT'S RFA. CLEANED WITH WOUND CLEANSER AND COVERED WITH 2X2 MEPILEX. IV REMOVED FROM PATIENT'S RIGHT AC WITH TIP INTACT. ADHESIVE REMOVER USED SINCE PATIENT PRONE TO SKIN TEARS. REMOVED WITHOUT DIFFICULTY. PATIENT STATES DOES NOT WANT ANOTHER IV.
--- NOTE | 2020-12-18 11:00 | NUR ---
PATIENT UP IN CHAIR AT BEDSIDE PER PT.
--- NOTE | 2020-12-18 11:12 | NUR ---
SPOKE WITH EDDIE IN PHARMACY TO RETIME MEDS D/T NO IV ACCESS. STATES WILL RETIME.
--- NOTE | 2020-12-18 11:59 | NUR ---
JOHAN AGUILLON STATES CHANGING ABX TO PO AND DC ORDER FOR MIDLINE.
[2020-12-18 12:34] VITALS: BP 131/62
--- NOTE | 2020-12-18 15:25 | NUR ---
OT NOTE: PT DOING MUCH BETTER TODAY. REPORTS THAT SHE FEELS BETTER.. BED MOB WITH MOD ASSIST FOR SUPINE TO SIT.. SIT TO STAND WITH MIN ASSIST AND USE OF WALKER.. PT ABLE TO STAND FOR APPROX 2 MIN WHILE PERINEAL CARE WAS PERFORMED. MAX ASSIST TO PETER SOCKS.. MIN ASSIST WITH UE DRESSING.. SET UP FOR FEEDING AND GROOMING TASKS; SET UP FOR BATHING UPPER BODY AND CHEST.. EXT ASSIST REQUIRED FOR UNDER ARMS AND UNDER BREASTS.. POWDER APPLIED DUE TO REDNESS NOTED IN THOSE AREAS. TRANSFERS TO CHAIR WITH WALKER AND MIN ASSIST. TRANSFERS BACK TO BED WITH MIN ASSIST. MAX ASSIST FOR SIT TO SUPINE AND REPOSITIONING IN BED. PT REMAINS PLEASANTLY CONFUSED. MARTIN PAUL, OTR/L [phone]
[2020-12-18 16:54] VITALS: BP 137/69
--- NOTE | 2020-12-18 16:54 | NUR ---
OT NOTE: PT COMPLETED SUPINE TO SIT WITH CGA-MIN A FOR LE MANAGEMENT. PT COMPLETED SIT TO STAND WITH CGA. PT COMPLETED ADL MOB WITH RW REQUIRED CGA. PT REQUIRED TOTAL A FOR LB HYGIENE TASKS. [id number] EDUARDO MAHONEY COTA
[2020-12-18 20:00] VITALS: BP 178/73
--- NOTE | 2020-12-18 20:00 | NUR ---
PT SITTING UP IN BED WITHOUT DISTRESS, ORIENTED TO SELF ONLY. PROVIDED ICE WATER. PT SNACKING ON FRITOS AND DIP AT THIS TIME. DENIES NEEDS. CL IN REACH, BED ALARM ON
[2020-12-19] VITALS: BP 184/76
[2020-12-19 04:00] VITALS: BP 191/78
[2020-12-19 05:59] LABS: BASOPHILS 0.1 % (0-2); EOSINOPHILS 0.3 % (0-7); HEMOGLOBIN 10.3 g/dL (12-16); MCH 24.4 pg (26.0-34.0); MCHC 31.3 g/dL (31.0-37.0); MCV 78.1 fL (80.0-100.0); MEAN PLATELET VOLUME 9.4 fL (7.4-10.4); MONOCYTES 6.8 % (2-11); NEUTROPHILS 88.8 % (40-80); PLATELET COUNT 238 10x3/uL (130-400); RBC 4.22 10x6/uL (4.00-5.40); RDW 19.6 % (11.5-14.5); WBC 14.7 10x3/uL (4.8-10.8)
[2020-12-19 06:20] LABS: ALBUMIN 3.1 g/dL (3.4-5.0); ANION GAP 11.5 mmol/L (8-16); BILIRUBIN - TOTAL 0.55 mg/dL (0.2-1.3); CALCIUM 9.3 mg/dL (8.5-10.1); CREATININE - SERUM 1.3 mg/dL (0.6-1.3); POTASSIUM - SERUM 4.5 mmol/L (3.5-5.1); PROTEIN - SERUM 6.4 g/dL (6.4-8.2); VANCOMYCIN - RANDOM 12.3 ug/mL (10.0-20.0)
[2020-12-19 08:25] VITALS: BP 187/72
--- NOTE | 2020-12-19 09:29 | MORECARE ---
CASE MANAGEMENT DISCHARGE SUMMARY PATIENT: TISH NICK UNIT: [id number] ADM DATE: 12/07/20 AGE: 85 : 36 SEX: F ROOM/BED: D.2214 AUTHOR: PHIL,DOC PHYSICIAN: REFERRING PHYSICIAN: MIMI TREVIÑO DO DATE OF SERVICE: 12/19/20 Case Management Discharge Planning Summary COMMENTS ENTERED DATE: 12/19/20 9:20 CT COMMENT TYPE: Discharge Planning REVIEWER: Kiki Huddleston CM continues to update [facility], they will accept her when she is stable to come. ENTERED DATE: 12/15/20 11:58 CT COMMENT TYPE: Discharge Planning REVIEWER: Serenity Francis CM spoke with Ana [phone] with [facility] and faxed updated clinicials. f [phone] She is planning on finishing patients workup today so patient can discharge on Wednesday. CM will continue to follow and assist as needed with discharge planning needs. ENTERED DATE: 12/12/20 14:47 CT COMMENT TYPE: Discharge Planning REVIEWER: Kiki Huddleston Per patient's nurse they would like to go to the swing bed in [place] if possible I called Magi Valiente RN @ [phone], I did not get an answer her mailbox was full so I could not leave a message I called Alise Douglas at [phone] and I did not get an answer. I will try again at a later time Jasmyne with [facility] came by to see the patient. If the patient is agreeable they will accept the patient, but at this time they would like [place] as their first choice CM to follow and assist as needed ENTERED DATE: 12/12/20 7:31 CT COMMENT TYPE: Discharge Planning REVIEWER: Kiki Huddleston late entry 12/11/20 @ 1700 CM met with patient & spouse to complete initial dc planning assessment. CM educated patient on the CM role and verbal consent given by patient to complete assessment. Patient lives at home with her where she is not independent with her ADL's. She was currently at [facility] and requested to be discharged before she should have left. When she arrived home she fell and her could not get her up. She knows that she needs rehab she would like to come back to our rehab, but our rehab will not accept her. I spoke with them about their options. They would like to try Inpatient rehab at [facility] if possible. We also spoke about a swing bed in [place] at [facility]. I am not sure if she would qualify for that, but will send a referral if she is not able to go to [facility]. Their 3rd choice would be [facility]. I go t a LEOBARDO for all 3 options. She is a patient of Dr Lala and uses the [facility] in [place]. She has a walker, wheelchair, BSC, hydrolic lift ( but said that he can not get a metal this under her to use it ) he asked if he could get a julian lift. She also has hand rails over toilet and in her shower. She uses home O2 and portable O2, but could not think of the company that she was set up with from rehab. She has a ramp in her home. During my assessment, the patient appeared to have an increase work to breathe. She was using accessory muscles to speak and sounded very wet. Her O2 was at 3.5-4L and she stated that she uses 2L at home. She c/o of being SOB & it was obvious she was. I called Asia Bradley APN and received a new order for a chest xray and pulm was consulted. Patient denied known discharge needs at this time. CM will continue to follow and will assist as needed with dc plans/needs. DCP REVIEW SUMMARY ANTICIPATED D/C DATE: EXPECTED LOS : CASE STATUS: DCP Initiated INITIAL REVIEW: 12/07/2020 INITIAL REVIEWER: Kiki Huddleston FINAL DISCHARGE DISPOSITION: : FINAL REVIEWER: FINAL REVIEW DATE: DCP Focus Questions & Answers QUESTION: ANSWER : PATIENT: TISH NICK ENCOUNTER: [id number] MEDICAL RECORD#: [id number] ADMISSION DATE: 12/07/2020 DISCHARGE DATE: ATTENDING MD: MIMI CARBAJAL : AGE: 85 MARITAL STATUS: M DC PLAN ID: [id number] FACILITY: [facility] PRINTED ON: 12/19/20 9:28 CT All edits/amendments must be made on the electronic document DICTATION DATE: 12/19/20927 FIRE SPRINKLER INSPECTOR: DM 12/19/20927 RPT#: [id number] DC DATE: STATUS: ADM IN [facility] [address] [place] [address] END OF REPORT
--- NOTE | 2020-12-19 12:31 | NUR ---
Nutrition Re-Assessment Diet: Diabetic PO intake: none recorded in EMR. Poor appetite. Last BM: 12/16/20 Wt: 283# (12/10/20); Admit Wt: 283# (12/07/20) Meds noted: abx, prednisone, probiotics, lantus, SSI Labs noted: BUN 31(H), GFR 41(L), Glu 157(H), POC Glu 177(H) Estimated nutrition needs: 4880-7689 brent (25-30kcal/kg Adj), 41-54gms protein (0.6-0.8gms/kg), 1700-2050mL fluid (or per MD) Nutrition diagnosis: Inadequate energy intake r/t inadequate oral intake AEB PO intake low and poor appetite reported. Nutrition goals: -PO intake will increase to >65% meals -Meet fluid needs -Stable weight -Glucose to trend near WNL Recommendations/Interventions: -Recommend continue diabetic diet. Will continue to honor food preferences within diet restrictions. -Will add Glucerna with meals. -MD may consider adding appetite stimulant as medically feasible. -RD will follow-up 12/23/20.
[2020-12-19 12:50] VITALS: BP 179/81
[2020-12-19] MEDS ORDERED: ZITHROMAX250 MG PO (13:34)
[2020-12-19] MEDS ORDERED: VIBRAMYCIN 100100 MG PO (13:34)
[2020-12-19] MEDS ORDERED: ROCEPHIN 1 GM/D51 G1 IM (13:34)
[2020-12-19] MEDS ORDERED: TESSALON PERLE100 MG PO (13:35)
[2020-12-19] MEDS ORDERED: LOPRESSOR25 MG PO (13:35)
[2020-12-19] MEDS ORDERED: ATROVENT 0.02%2.5 ML UPD (13:37)
[2020-12-19] MEDS ORDERED: PERFOROMIS20 MCG/21 INH (13:38)
[2020-12-19] MEDS ORDERED: Xopenex 0.63 MG INH UPD (13:38)
[2020-12-19] MEDS ORDERED: PREDNISONE20 MG PO (13:39)
--- NOTE | 2020-12-19 14:38 | MORECARE ---
CASE MANAGEMENT DISCHARGE SUMMARY PATIENT: TISH NICK UNIT: [id number] ADM DATE: 12/07/20 AGE: 85 : 36 SEX: F ROOM/BED: D.2214 AUTHOR: PHIL,DOC PHYSICIAN: REFERRING PHYSICIAN: MIMI TREVIÑO DO DATE OF SERVICE: 12/19/20 Case Management Discharge Planning Summary COMMENTS ENTERED DATE: 12/19/20 14:32 CT COMMENT TYPE: Discharge Planning REVIEWER: Kiki Huddleston Patient will be discharging today to [facility] inpatient rehab today. Her is at her bedside and is aware. IMM served and explained. [facility] will arrange transportation. ENTERED DATE: 12/19/20 9:20 CT COMMENT TYPE: Discharge Planning REVIEWER: Kiki Huddleston CM continues to update [facility], they will accept her when she is stable to come. ENTERED DATE: 12/15/20 11:58 CT COMMENT TYPE: Discharge Planning REVIEWER: Serenity Francis CM spoke with Ana [phone] with [facility] and faxed updated clinicials. f [phone] She is planning on finishing patients workup today so patient can discharge on Wednesday. CM will continue to follow and assist as needed with discharge planning needs. ENTERED DATE: 12/12/20 14:47 CT COMMENT TYPE: Discharge Planning REVIEWER: Kikiyue Huddleston Per patient's nurse they would like to go to the swing bed in [place] if possible I called Magi Valiente RN @ [phone], I did not get an answer her mailbox was full so I could not leave a message I called Alise Douglas at [phone] and I did not get an answer. I will try again at a later time Jasmyne with [facility] came by to see the patient. If the patient is agreeable they will accept the patient, but at this time they would like [place] as their first choice CM to follow and assist as needed ENTERED DATE: 12/12/20 7:31 CT COMMENT TYPE: Discharge Planning REVIEWER: Kiki Huddleston late entry 12/11/20 @ 1700 CM met with patient & spouse to complete initial dc planning assessment. CM educated patient on the CM role and verbal consent given by patient to complete assessment. Patient lives at home with her where she is not independent with her ADL's. She was currently at [facility] and requested to be discharged before she should have left. When she arrived home she fell and her could not get her up. She knows that she needs rehab she would like to come back to our rehab, but our rehab will not accept her. I spoke with them about their options. They would like to try Inpatient rehab at [facility] if possible. We also spoke about a swing bed in [place] at [facility]. I am not sure if she would qualify for that, but will send a referral if she is not able to go to [facility]. Their 3rd choice would be [facility]. I go t a LEOBARDO for all 3 options. She is a patient of Dr Lala and uses the [facility] in [place]. She has a walker, wheelchair, BSC, hydrolic lift ( but said that he can not get a metal this under her to use it ) he asked if he could get a julian lift. She also has hand rails over toilet and in her shower. She uses home O2 and portable O2, but could not think of the company that she was set up with from rehab. She has a ramp in her home. During my assessment, the patient appeared to have an increase work to breathe. She was using accessory muscles to speak and sounded very wet. Her O2 was at 3.5-4L and she stated that she uses 2L at home. She c/o of being SOB & it was obvious she was. I called Asia Bradley APN and received a new order for a chest xray and pulm was consulted. Patient denied known discharge needs at this time. CM will continue to follow and will assist as needed with dc plans/needs. DCP REVIEW SUMMARY ANTICIPATED D/C DATE: EXPECTED LOS : CASE STATUS: DCP Initiated INITIAL REVIEW: 12/07/2020 INITIAL REVIEWER: Kiki Huddleston FINAL DISCHARGE DISPOSITION: 62 : Discharged/Trans to Rehab Facility Including Distinct Units of a Hospital FINAL REVIEWER: FINAL REVIEW DATE: DCP Focus Questions & Answers QUESTION: ANSWER : PATIENT: TISH NICK ENCOUNTER: [id number] MEDICAL RECORD#: [id number] ADMISSION DATE: 12/07/2020 DISCHARGE DATE: ATTENDING MD: MIMI CARBAJAL : AGE: 85 MARITAL STATUS: M DC PLAN ID: [id number] FACILITY: [facility] PRINTED ON: 12/19/20 14:38 CT All edits/amendments must be made on the electronic document DICTATION DATE: 12/19/201437 SENIOR LITIGATION PARALEGAL: DM 12/19/201437 RPT#: [id number] DC DATE: STATUS: ADM IN [facility] [address] [place] [address] END OF REPORT
--- NOTE | 2020-12-19 15:43 | NUR ---
OT NOTE: PT DID NOT DO WELL TODAY; REPORTED THAT SHE WAS NOT FEELING WELL. MAX ASSIST WITH TOILET HYGIENE; MOD ASSIST WITH DONNING GOWN; MAX ASSIST WITH LE DRESSING; SET UP WITH WASHING FACE AND HANDS; SIT TO STAND WITH MOD/MAX ASSIST TODAY. UNABLE TO TRANSFER WITH 1 PERSON PT STATED THAT HER LEGS COUDL NOT HOLD HER UP TODAY. CALLED FOR TECH ASSIST..TRANSFERRED WITH MOD ASSIST X 2 WITH WALKER.. BARELY MADE IT BACK TO THE BED; MAX ASSIST FOR SIT TO SUPINE AND POSITIONING IN BED. MUCH MORE WEAK TODAY. MARTIN KHAN, OTR/L 130-2
--- NOTE | 2020-12-19 16:27 | MORECARE ---
CASE MANAGEMENT DISCHARGE SUMMARY PATIENT: TISH NICK UNIT: [id number] ADM DATE: 12/07/20 AGE: 85 : 36 SEX: F ROOM/BED: D.2214 AUTHOR: PHIL,DOC PHYSICIAN: REFERRING PHYSICIAN: MIMI TREVIÑO DO DATE OF SERVICE: 12/19/20 Case Management Discharge Planning Summary COMMENTS ENTERED DATE: 12/19/20 14:32 CT COMMENT TYPE: Discharge Planning REVIEWER: Kiki Huddleston Patient will be discharging today to [facility] inpatient rehab today. Her is at her bedside and is aware. IMM served and explained. [facility] will arrange transportation. ENTERED DATE: 12/19/20 9:20 CT COMMENT TYPE: Discharge Planning REVIEWER: Kiki Huddleston CM continues to update [facility], they will accept her when she is stable to come. ENTERED DATE: 12/15/20 11:58 CT COMMENT TYPE: Discharge Planning REVIEWER: Serenity Francis CM spoke with Ana [phone] with [facility] and faxed updated clinicials. f [phone] She is planning on finishing patients workup today so patient can discharge on Wednesday. CM will continue to follow and assist as needed with discharge planning needs. ENTERED DATE: 12/12/20 14:47 CT COMMENT TYPE: Discharge Planning REVIEWER: Kikiyue Huddleston Per patient's nurse they would like to go to the swing bed in [place] if possible I called Magi Valiente RN @ [phone], I did not get an answer her mailbox was full so I could not leave a message I called Alise Douglas at [phone] and I did not get an answer. I will try again at a later time Jasmyne with [facility] came by to see the patient. If the patient is agreeable they will accept the patient, but at this time they would like [place] as their first choice CM to follow and assist as needed ENTERED DATE: 12/12/20 7:31 CT COMMENT TYPE: Discharge Planning REVIEWER: Kiki Huddleston late entry 12/11/20 @ 1700 CM met with patient & spouse to complete initial dc planning assessment. CM educated patient on the CM role and verbal consent given by patient to complete assessment. Patient lives at home with her where she is not independent with her ADL's. She was currently at [facility] and requested to be discharged before she should have left. When she arrived home she fell and her could not get her up. She knows that she needs rehab she would like to come back to our rehab, but our rehab will not accept her. I spoke with them about their options. They would like to try Inpatient rehab at [facility] if possible. We also spoke about a swing bed in [place] at [facility]. I am not sure if she would qualify for that, but will send a referral if she is not able to go to [facility]. Their 3rd choice would be [facility]. I go t a LEOBARDO for all 3 options. She is a patient of Dr Lala and uses the [facility] in [place]. She has a walker, wheelchair, BSC, hydrolic lift ( but said that he can not get a metal this under her to use it ) he asked if he could get a julian lift. She also has hand rails over toilet and in her shower. She uses home O2 and portable O2, but could not think of the company that she was set up with from rehab. She has a ramp in her home. During my assessment, the patient appeared to have an increase work to breathe. She was using accessory muscles to speak and sounded very wet. Her O2 was at 3.5-4L and she stated that she uses 2L at home. She c/o of being SOB & it was obvious she was. I called Asia Bradley APN and received a new order for a chest xray and pulm was consulted. Patient denied known discharge needs at this time. CM will continue to follow and will assist as needed with dc plans/needs. DCP REVIEW SUMMARY ANTICIPATED D/C DATE: EXPECTED LOS : CASE STATUS: DCP Initiated INITIAL REVIEW: 12/07/2020 INITIAL REVIEWER: Kiki Huddleston FINAL DISCHARGE DISPOSITION: 62 : Discharged/Trans to Rehab Facility Including Distinct Units of a Hospital FINAL REVIEWER: FINAL REVIEW DATE: DCP Focus Questions & Answers QUESTION: ANSWER : PATIENT: TISH NICK ENCOUNTER: [id number] MEDICAL RECORD#: [id number] ADMISSION DATE: 12/07/2020 DISCHARGE DATE: 12/19/2020 ATTENDING MD: MIMI CARBAJAL : 1936- AGE: 85 MARITAL STATUS: M DC PLAN ID: [id number] FACILITY: [facility] PRINTED ON: 12/19/20 16:26 CT All edits/amendments must be made on the electronic document DICTATION DATE: 12/19/201625 OUTSIDE MACHINIST HELPER: ESTELA 12/19/201625 RPT#: [id number] DC DATE:12/19/20 STATUS: DIS IN [facility] [address] [place] [address] END OF REPORT
--- NOTE | 2020-12-23 09:26 | EC ---
PATIENT:TISH NICK DATE OF SERVICE: 12/07/20 SEX: F MEDICAL RECORD: [id number] DATE OF : 37 LOCATION:D.MS [facility] AGE OF PATIENT: 85 ADMISSION DATE: 12/07/20 REFERRING PHYSICIAN: INTERPRETING PHYSICIAN: GABY MARCANO MD ECHOCARDIOGRAM REPORT ECHO CHARGES 5 ECHO LIMITED Date: 12/12/20 CLINICAL DIAGNOSIS: SOB ECHOCARDIOGRAPHIC MEASUREMENTS (adult normal given) AC root (d.<3.7cm) 0 cm LV Septum d (<1.2 cm> 0 cm Valve Excursion 0 cm LV Septum (systole) 0 cm Left Atria (s.<4.0cm> 0 cm LVPW d(<1.2cm) 0 cm RV (d.<2.3cm) 0 cm LVPW (sytole) 0 cm LV diastole(<5.6CM) 0 cm MV E-F(>70mm/sec) 0 cm LV systole 0 cm LVOT Diameter 0 cm MV exc.(>10mm) 0 cm Est.ejection fraction (50-75%) % DOPPLER: LVIT cm/sec A 0 cm/sec E 0 cm/sec LA 0 cm/sec RVSP 42 mmHg LVOT 0 cm/sec AOP1/2T m/s Asc. Ao 0 cm/sec RVOT 0 cm/sec RA 0 cm/sec PA 0 cm/sec AV Gradient Peak 0 mmHg AV Mean 0 mmHg AV Area 0 cm MV Gradient Peak 0 mmHg MV Mean 0 mmHg MV Area cm COMMENTS: Environmental Aide: Daysi RUIZ Advertising Operations Coordinator: Sandra Chicas TAPE# Pericardial Effusion N DATE OF SERVICE: Limited 2D, color flow. Grossly, LVH appears present. LV internal dimension is normal. Wall motion is normal. EF is greater than or equal to 55%. Aortic valve is tricuspid with good valve excursion. Left atrium grossly appears normal. No more than mild MR. Right side is grossly normal. No more than mild TR. RV systolic pressure is estimated at greater than or equal to 42 mmHg via the continuity equation. ECHOCARDIOGRAM REPORT [id number] TISH NICK TRANSINT:[id number] Voice Confirmation ID: [id number] DOCUMENT ID: [id number] GABY MARCANO MD at 0979 CC: [id number] DICTATION DATE: 12/20/20 1120 SPORTS COMPLEX ATTENDANT: 12/20/20 1259 DIS IN 12/19/20 [facility] [address], [facility]
--- NOTE | 2020-12-23 09:43 | MORECARE ---
CASE MANAGEMENT DISCHARGE SUMMARY PATIENT: TISH NICK UNIT: [id number] ADM DATE: 12/07/20 AGE: 85 : 36 SEX: F ROOM/BED: D.2214 AUTHOR: PHIL,DOC PHYSICIAN: REFERRING PHYSICIAN: MIMI TREVIÑO DO DATE OF SERVICE: 12/23/20 Case Management Discharge Planning Summary COMMENTS ENTERED DATE: 12/19/20 14:32 CT COMMENT TYPE: Discharge Planning REVIEWER: Kiki Huddleston Patient will be discharging today to [facility] inpatient rehab today. Her is at her bedside and is aware. IMM served and explained. [facility] will arrange transportation. ENTERED DATE: 12/19/20 9:20 CT COMMENT TYPE: Discharge Planning REVIEWER: Kiki Huddleston CM continues to update [facility], they will accept her when she is stable to come. ENTERED DATE: 12/15/20 11:58 CT COMMENT TYPE: Discharge Planning REVIEWER: Serenity Francis CM spoke with Ana [phone] with [facility] and faxed updated clinicials. f [phone] She is planning on finishing patients workup today so patient can discharge on Wednesday. CM will continue to follow and assist as needed with discharge planning needs. ENTERED DATE: 12/12/20 14:47 CT COMMENT TYPE: Discharge Planning REVIEWER: Kikiyue Huddleston Per patient's nurse they would like to go to the swing bed in [place] if possible I called Magi Valiente RN @ [phone], I did not get an answer her mailbox was full so I could not leave a message I called Alise Douglas at [phone] and I did not get an answer. I will try again at a later time Jasmyne with [facility] came by to see the patient. If the patient is agreeable they will accept the patient, but at this time they would like [place] as their first choice CM to follow and assist as needed ENTERED DATE: 12/12/20 7:31 CT COMMENT TYPE: Discharge Planning REVIEWER: Kiki Huddleston late entry 12/11/20 @ 1700 CM met with patient & spouse to complete initial dc planning assessment. CM educated patient on the CM role and verbal consent given by patient to complete assessment. Patient lives at home with her where she is not independent with her ADL's. She was currently at [facility] and requested to be discharged before she should have left. When she arrived home she fell and her could not get her up. She knows that she needs rehab she would like to come back to our rehab, but our rehab will not accept her. I spoke with them about their options. They would like to try Inpatient rehab at [facility] if possible. We also spoke about a swing bed in [place] at [facility]. I am not sure if she would qualify for that, but will send a referral if she is not able to go to [facility]. Their 3rd choice would be [facility]. I go t a LEOBARDO for all 3 options. She is a patient of Dr Lala and uses the [facility] in [place]. She has a walker, wheelchair, BSC, hydrolic lift ( but said that he can not get a metal this under her to use it ) he asked if he could get a julian lift. She also has hand rails over toilet and in her shower. She uses home O2 and portable O2, but could not think of the company that she was set up with from rehab. She has a ramp in her home. During my assessment, the patient appeared to have an increase work to breathe. She was using accessory muscles to speak and sounded very wet. Her O2 was at 3.5-4L and she stated that she uses 2L at home. She c/o of being SOB & it was obvious she was. I called Asia Bradley APN and received a new order for a chest xray and pulm was consulted. Patient denied known discharge needs at this time. CM will continue to follow and will assist as needed with dc plans/needs. DCP REVIEW SUMMARY ANTICIPATED D/C DATE: EXPECTED LOS : 0 CASE STATUS: DCP Complete INITIAL REVIEW: 12/07/2020 INITIAL REVIEWER: Kiki Huddleston FINAL DISCHARGE DISPOSITION: 62 : Discharged/Trans to Rehab Facility Including Distinct Units of a Hospital FINAL REVIEWER: Kiki Huddleston FINAL REVIEW DATE: 12/23/2020 DCP Focus Questions & Answers QUESTION: ANSWER : PATIENT: TISH NICK ENCOUNTER: [id number] MEDICAL RECORD#: [id number] ADMISSION DATE: 12/07/2020 DISCHARGE DATE: 12/19/2020 ATTENDING MD: MIMI CARBAJAL : AGE: 85 MARITAL STATUS: M DC PLAN ID: [id number] FACILITY: [facility] PRINTED ON: 12/23/20 9:43 CT All edits/amendments must be made on the electronic document DICTATION DATE: 12/23/20941 EXTRACTION SUPERVISOR: ESTELA 12/23/20941 RPT#: [id number] DC DATE:12/19/20 STATUS: DIS IN [facility] [address] [place] [address] END OF REPORT
== END 2020-12-19 16:15 | DRG 91 ==
LOC: D.ER 13:14 → D.MS 14:03
PROVIDERS: Emergency Medicine; Family Medicine; Family Medicine Adult Medicine; Internal Medicine Pulmonary Disease; ADMIT Family Medicine; ATTEND Family Medicine
DX: G72.81 Critical illness myopathy (principal); J18.9 Pneumonia, unspecified organism; Z68.43 Body mass index [BMI] 50.0-59.9, adult; N17.9 Acute kidney failure, unspecified; N39.0 Urinary tract infection, site not specified; J98.01 Acute bronchospasm; R41.82 Altered mental status, unspecified; R53.1 Weakness; E66.01 Morbid (severe) obesity due to excess calories; E11.51 Type 2 diabetes mellitus with diabetic peripheral angiopathy without gangrene; E11.40 Type 2 diabetes mellitus with diabetic neuropathy, unspecified; E11.65 Type 2 diabetes mellitus with hyperglycemia; D50.9 Iron deficiency anemia, unspecified; Z86.73 Personal history of transient ischemic attack (TIA), and cerebral infarction without residual deficits; I73.9 Peripheral vascular disease, unspecified; D69.6 Thrombocytopenia, unspecified